=== PATIENT | female | born 1980 | race Caucasian/White ===

== ENCOUNTER 2022-06-21 01:01 | Emergency (ER) | payer SELFPAY ==
[2022-06-21 01:03] VITALS: BP 130/76; PULSE 91; RESP 18; TEMP 36.9; O2SAT 100; BMI 31.6
--- NOTE | 2022-06-21 02:34 | ED_ITS ---
HPI - General Adult General Chief complaint: General Medical Stated complaint: unable to move neck, pain goes to legs Time Seen by Provider: 06/21/22 01:42 History of Present Illness HPI narrative: Patient is a 41-year-old female with a history of having neck pain. Pain worse with turning. No fever no chills. Now is having migraine headaches as well. The migraine is diffuse. Positive photophobia similar to previous bouts. Patient is from home Related Data Previous Rx's Medication Instructions Recorded cyclobenzaprine 10 mg tablet 10 mg PO TID PRN pain #14 tabs 06/21/22 ibuprofen 400 mg tablet 400 mg PO Q6H PRN pain #20 tabs 06/21/22 nirmatrelvir 150 mg-ritonavir 100 See Rx Instructions PO .COMPLEX 06/21/22 mg tablets in a dose pack (EUA) #20 ea (Paxlovid) Allergies Allergy/AdvReac Type Severity Reaction Status Date / Time No Known Allergies Allergy Verified 06/21/22 01:09 Review of Systems Review of Systems: No coughing or congestion or respiratory symptoms Yes all other systems are reviewed and are negative [facility] Past Medical History Attestation statement: The following information was validated with the patient. Social History Social History Alcohol intake: never Smoked in Last 30 Days: Yes Use of substances other than those prescribed or required for medical reasons: No Advance Directives: No Advance Directives Information Provided: Yes Patient : No Physical Exam ED Vital Signs: Vital Signs - 24 hr 06/21/22 01:03 Temperature 98.4 F Pulse Rate 91 Respiratory Rate 18 Blood Pressure 130/76 Pulse Oximetry 100 Oxygen Delivery Method Room Air BMI result Body Mass Index 31.6 Appearance: Alert. Oriented X3. No acute distress. Eyes: Pupils equal, round and reactive to light. ENT: Pharynx normal. Neck: Normal inspection. Neck supple. No lymph nodes noted. No crepitus. No spinal tenderness. Positive paraspinal muscle tenderness bilaterally. Positive pain on turning her head. Less pain on moving her head up and down. CVS: Normal heart rate and rhythm. Pulses normal. Normal S1 and S2 Respiratory: No respiratory distress. Breath sounds normal. No Wheezing. No rales Abdomen: Soft and nontender. No rigidity. No distention. good BS x4 Skin: Skin warm and dry. Normal skin color. Normal skin turgor. Extremities: No lower extremity edema. Neurovascular intact to all extremities. No Lacerations. No Rash Neuro: Oriented X 3. No motor deficit. No sensory deficit. Moving all extermities. No slurred speech Medications Administered Discontinued Medications Generic Name Dose Route Start Last Admin Trade Name Gibson PRN Reason Stop Dose Admin Diphenhydramine HCl 25 mg 06/21/22 02:31 06/21/22 02:56 Diphenhydramine Hcl 50 Mg/Ml Vial IVPUSH 06/21/22 02:32 25 mg ONCE ONE Administration Ketorolac Tromethamine 30 mg 06/21/22 02:31 06/21/22 02:56 Ketorolac Tromethamine 30 Mg/Ml Vial IVPUSH 06/21/22 02:32 30 mg ONCE ONE Administration Lorazepam 0.5 mg 06/21/22 02:34 06/21/22 02:56 Lorazepam 2 Mg/Ml Vial IVPUSH 06/21/22 02:35 0.5 mg ONCE ONE Administration Metoclopramide HCl 10 mg 06/21/22 02:31 06/21/22 02:56 Metoclopramide Hcl 10 Mg/2 Ml Vial IVPUSH 06/21/22 02:32 10 mg ONCE ONE Administration Medical Decision Making Differential Diagnosis Question torticollis. Will give pain medication. History of migraine having similar symptoms. No evidence for meningitis. History not consistent. Will start patient on Reglan, Toradol, Benadryl, Ativan for her pains. She complained of also pain to her calf. She does not have any risk for pulmonary emboli. She is not on control. No long distance travel. We will go ahead and get a D-dimer. Patient LFTs and lipase ordered he felt she had lots of reflux she is in stable condition. An EKG was also ordered to rule out coronary issues. Flu COVID RSV was sent. Patient's COVID test came back positive. Question that is causing the headache and a slight upper respiratory symptoms. Symptoms been going on for about 3-4 days. Patient is vaccinated. She is low risk for COVID complications. After discussion with family. Will prescribe patient with PaxLovid. Patient's D- dimer is negative. Making DVT highly unlikely in the setting of low risk. Will give Motrin for the headache. Will give muscle relaxant for the spasm. Symptomaticly felt much improved after migraine treatment. Patient is sleeping. In no distress. Neurologically intact. Will discharge home. Lab Data 06/21/22 02:53 06/21/22 02:53 Labs: Lab Results 06/21/22 06/21/22 06/21/22 Range/Units 02:47 02:53 02:53 WBC 9.2 (4.8-10.8) X10*3/uL RBC 4.42 (4.20-5.50) X10*6/uL Hgb 12.6 (12.0-16.0) g/dl Hct 38.0 (37.0-47.0) % MCV 86.0 (80.0-98.0) fL MCH 28.5 (27.0-33.0) pg MCHC 33.2 (31.0-35.0) g/dl RDW 12.6 (11.0-16.0) % Plt Count 212 (160-400) X10*3/uL MPV 10.0 (9.4-12.3) fL Immature Gran % (Auto) 0.1 (0.0-0.4) % Neut % (Auto) 62.4 (45-73) % Lymph % (Auto) 27.9 (20-40) % Ellis % (Auto) 7.7 (2-11) % Eos % (Auto) 1.4 (0-4) % Baso % (Auto) 0.5 (0-2) % Lymph # (Auto) 2.6 (1.2-4.9) X10*3/uL Ellis # (Auto) 0.7 (0.1-1.2) X10*3/uL Eos # (Auto) 0.1 (0.0-0.4) X10*3/uL Baso # (Auto) 0.1 (0.0-0.2) X10*3/uL Abs Immat Gran (auto) 0.01 (0.00-0.03) X10*3/uL Absolute Neuts (auto) 5.7 (2.0-8.3) x10*3/uL Absolute Nucleated RBC 0.000 (0.0-0.012) X10*3/uL Nucleated RBC % (auto) 0.0 (0.0-0.2) /100WBC D-Dimer High Sensitivty 173 NG/ML Sodium (135-145) mmol/L Potassium (3.3-5.1) mmol/L Chloride (96-108) mmol/L Carbon Dioxide (22-29) mmol/L Anion Gap (12-20) BUN (9-16) mg/dL Creatinine (0.5-1.4) mg/dL Estim Creat Clear Calc Estimated GFR Random Glucose (60-115) mg/dL Calcium (8.4-10.2) mg/dL Total Bilirubin (0.0-1.0) mg/dL Direct Bilirubin (0.0-0.5) mg/dL AST (5-31) U/L ALT (0-31) U/L Alkaline Phosphatase (39-117) U/L Total Protein (6.5-8.0) g/dL Albumin (3.5-5.0) g/dL Lipase (8-78) U/L Beta HCG, Quant mIU/mL Urine Color Urine Appearance Urine pH (5.0-9.0) Ur Specific [place] (1.005-1.025) Urine Protein (Neg-Trace) mg/dL Urine Glucose (UA) (Negative) mg/dL Urine Ketones (Negative) mg/dL Urine Blood (Negative) Urine Nitrite (Negative) Ur Leukocyte Esterase (Negative) Influenza Type A (PCR) NEGATIVE (Negative) Influenza Type B (PCR) NEGATIVE (Negative) RSV RNA Qual (PCR) NEGATIVE (Negative) SARS-CoV-2 RNA (RT-PCR) POSITIVE A (Negative) 06/21/22 06/21/22 Range/Units 02:53 03:10 WBC (4.8-10.8) X10*3/uL RBC (4.20-5.50) X10*6/uL Hgb (12.0-16.0) g/dl Hct (37.0-47.0) % MCV (80.0-98.0) fL MCH (27.0-33.0) pg MCHC (31.0-35.0) g/dl RDW (11.0-16.0) % Plt Count (160-400) X10*3/uL MPV (9.4-12.3) fL Immature Gran % (Auto) (0.0-0.4) % Neut % (Auto) (45-73) % Lymph % (Auto) (20-40) % Ellis % (Auto) (2-11) % Eos % (Auto) (0-4) % Baso % (Auto) (0-2) % Lymph # (Auto) (1.2-4.9) X10*3/uL Ellis # (Auto) (0.1-1.2) X10*3/uL Eos # (Auto) (0.0-0.4) X10*3/uL Baso # (Auto) (0.0-0.2) X10*3/uL Abs Immat Gran (auto) (0.00-0.03) X10*3/uL Absolute Neuts (auto) (2.0-8.3) x10*3/uL Absolute Nucleated RBC (0.0-0.012) X10*3/uL Nucleated RBC % (auto) (0.0-0.2) /100WBC D-Dimer High Sensitivty NG/ML Sodium 140 (135-145) mmol/L Potassium 3.9 (3.3-5.1) mmol/L Chloride 108 (96-108) mmol/L Carbon Dioxide 22 (22-29) mmol/L Anion Gap 14 (12-20) BUN 17 H (9-16) mg/dL Creatinine 0.77 (0.5-1.4) mg/dL Estim Creat Clear Calc 102.5 Estimated GFR > 60 Random Glucose 95 (60-115) mg/dL Calcium 8.8 (8.4-10.2) mg/dL Total Bilirubin 0.2 (0.0-1.0) mg/dL Direct Bilirubin < 0.2 (0.0-0.5) mg/dL AST 14 (5-31) U/L ALT 12 (0-31) U/L Alkaline Phosphatase 67 (39-117) U/L Total Protein 6.9 (6.5-8.0) g/dL Albumin 4.1 (3.5-5.0) g/dL Lipase 23 (8-78) U/L Beta HCG, Quant < 2 mIU/mL Urine Color Yellow Urine Appearance Clear Urine pH 6.5 (5.0-9.0) Ur Specific [place] 1.020 (1.005-1.025) Urine Protein Negative (Neg-Trace) mg/dL Urine Glucose (UA) Negative (Negative) mg/dL Urine Ketones Negative (Negative) mg/dL Urine Blood Negative (Negative) Urine Nitrite Negative (Negative) Ur Leukocyte Esterase Negative (Negative) Influenza Type A (PCR) (Negative) Influenza Type B (PCR) (Negative) RSV RNA Qual (PCR) (Negative) SARS-CoV-2 RNA (RT-PCR) (Negative) Independent Historian Clinical information obtained from an independent historian. History obtained fr om or confirmed by: Spouse External Record Review External record reviewed: Inpatient record Prescription Management I considered prescription management with: Pain Medication and Other Muscle relaxant Discharge Plan Discharge Clinical Impression: Torticollis, COVID-19, Migraine Patient Disposition: Home, Self-Care Instructions: Migraine Headache (ED), Spasmodic Torticollis (ED), COVID-19 (Coronavirus Disease 2019) (ED) Prescriptions: New Paxlovid (EUA) 150-100 mg tablets,dose pack See Rx Instructions .ROUTE .COMPLEX Qty: 20 0RF Rx Instructions: take ONE 150 mg tablet of nirmatrelvir with ONE 100 mg tablet of ritonavir twice daily for 5 days cyclobenzaprine 10 mg tablet 10 mg PO TID PRN (Reason: pain) Qty: 14 0RF ibuprofen 400 mg tablet 400 mg PO Q6H PRN (Reason: pain) Qty: 20 0RF Referrals: Physician,None [Primary Care Provider] -
--- NOTE | 2022-06-21 02:36 | ECG_ITS ---
Test Reason : HEADACHE Blood Pressure : / mmHG Vent. Rate : 079 BPM Atrial Rate : 079 BPM P-R Int : 178 ms QRS Dur : 080 ms QT Int : 384 ms P-R-T Axes : 054 062 025 degrees QTc Int : 440 ms Normal sinus rhythm Normal ECG No previous ECGs available Referred By: Nanda Mathur Electronically Signed By:Florentin Florence
[2022-06-21] MEDS: LORazepam 2 MG/ML VIAL 0.5 MG IVPUSH (02:56)
[2022-06-21] MEDS: Ketorolac Tromethamine 30 MG/ML VIAL IVPUSH (02:56)
[2022-06-21] MEDS: diphenhydrAMINE HCL 50 MG/ML VIAL 25 MG IVPUSH (02:56)
[2022-06-21] MEDS: Metoclopramide HCl 10 MG/2 ML VIAL IVPUSH (02:56)
[2022-06-21 02:59] LABS: MANUAL DIFF FLAG NO
[2022-06-21 03:01] LABS: Basophils Absolute Auto 0.1 X10*3/uL (0.0-0.2); Basophils Percent Auto 0.5 % (0-2); Eosinophils Absolute Auto 0.1 X10*3/uL (0.0-0.4); Eosinophils Percent Auto 1.4 % (0-4); Hemoglobin 12.6 g/dl (12.0-16.0); Imm Gran Abs Auto 0.01 X10*3/uL (0.00-0.03); Imm Gran Pct Auto 0.1 % (0.0-0.4); Lymphocytes Absolute Auto 2.6 X10*3/uL (1.2-4.9); Lymphocytes Percent Auto 27.9 % (20-40); Mean Corpuscular HGB Conc 33.2 g/dl (31.0-35.0); Mean Corpuscular Hemoglobin 28.5 pg (27.0-33.0); Monocytes Absolute Auto 0.7 X10*3/uL (0.1-1.2); Monocytes Percent Auto 7.7 % (2-11); Neutrophils Absolute Auto 5.7 x10*3/uL (2.0-8.3); Neutrophils Percent Auto 62.4 % (45-73); Platelet Count 212 X10*3/uL (160-400); Red Blood Count 4.42 X10*6/uL (4.20-5.50); Red Cell Distribution Width 12.6 % (11.0-16.0); White Blood Count 9.2 X10*3/uL (4.8-10.8)
[2022-06-21 03:08] LABS: D Dimer High Sensitivity 173 NG/ML
[2022-06-21 03:21] LABS: Alanine Aminotransferase 12 U/L (0-31); Albumin Level 4.1 g/dL (3.5-5.0); Alkaline Phosphatase 67 U/L (39-117); Anion Gap 14 (12-20); Aspartate Amino Transferase 14 U/L (5-31); Bilirubin Direct < 0.2 mg/dL (0.0-0.5); Bilirubin Total 0.2 mg/dL (0.0-1.0); Blood Urea Nitrogen 17 mg/dL (9-16); Calcium 8.8 mg/dL (8.4-10.2); Carbon Dioxide 22 mmol/L (22-29); Chloride 108 mmol/L (96-108); Creatinine Clr Calc Pharmacy 102.5; Estimated Glomerular Filt Rate > 60; Glucose Random 95 mg/dL (60-115); Lipase 23 U/L (8-78); Potassium 3.9 mmol/L (3.3-5.1); Sodium 140 mmol/L (135-145); Total Protein 6.9 g/dL (6.5-8.0)
[2022-06-21 03:31] LABS: HCG Quantitative < 2 mIU/mL
[2022-06-21 03:31] LABS: Appearance Urine Clear; Color Urine Yellow; Glucose Urine UA Negative (Negative); Leukocyte Esterase Urine Negative (Negative); Nitrite Urine Negative (Negative); PH 6.5 (5.0-9.0); Urine Blood Negative (Negative); Urine Ketones Negative (Negative); Urine Protein Negative (Neg-Trace)
[2022-06-21 03:38] LABS: Influenza A PCR NEGATIVE (Negative); Influenza B PCR NEGATIVE (Negative); Resp Syncy Virus RNA Qual PCR NEGATIVE (Negative); SARS COV2 PCR INHOUSE POSITIVE (Negative)
== END 2022-06-21 04:45 | disposition home or self-care (01) ==
PROVIDERS: Emergency Provider Emergency Medicine Emergency Medical Services
DX: U07.1 COVID-19 (principal); M43.6 Torticollis; G43.909 Migraine, unspecified, not intractable, without status migrainosus; Z20.828 Contact with and (suspected) exposure to other viral communicable diseases
CPT/HCPCS: 0241U; 36415; 80048; 80076; 81003; 83690; 84702; 85025; 85379; 93005; 96374; 96375; 99284; J1200; J1885; J2060; J2765

== ENCOUNTER 2023-03-09 00:25 | Emergency (ER) | payer OTHER, SELFPAY ==
--- NOTE | 2023-03-09 | ECG_ITS ---
Test Reason : CHEST PAIN Blood Pressure : / mmHG Vent. Rate : 094 BPM Atrial Rate : 094 BPM P-R Int : 172 ms QRS Dur : 090 ms QT Int : 344 ms P-R-T Axes : 048 060 029 degrees QTc Int : 430 ms Normal sinus rhythm Normal ECG When compared with ECG of 21-JUN-2022 02:58, No significant change was found Referred By: Generic ED Physician Electronically Signed By:ROHIT GARCIA
[2023-03-09 00:37] VITALS: BP 141/62; PULSE 98; RESP 18; TEMP 37.2; O2SAT 99; BMI 32.6
[2023-03-09 01:38] LABS: Basophils Percent Auto 0.4 % (0-2); Eosinophils Absolute Auto 0.1 X10*3/uL (0.0-0.4); Hematocrit 35.7 % (37.0-47.0); Hemoglobin 12.2 g/dl (12.0-16.0); Imm Gran Abs Auto 0.01 X10*3/uL (0.00-0.03); Imm Gran Pct Auto 0.1 % (0.0-0.4); Lymphocytes Absolute Auto 1.9 X10*3/uL (1.2-4.9); Lymphocytes Percent Auto 24.6 % (20-40); MANUAL DIFF FLAG NO; Mean Corpuscular HGB Conc 34.2 g/dl (31.0-35.0); Mean Corpuscular Hemoglobin 29.2 pg (27.0-33.0); Mean Corpuscular Volume 85.4 fL (80.0-98.0); Mean Platelet Volume 9.9 fL (9.4-12.3); Monocytes Absolute Auto 0.7 X10*3/uL (0.1-1.2); Monocytes Percent Auto 9.3 % (2-11); Neutrophils Absolute Auto 5.1 x10*3/uL (2.0-8.3); Neutrophils Percent Auto 64.6 % (45-73); Platelet Count 218 X10*3/uL (160-400); Red Blood Count 4.18 X10*6/uL (4.20-5.50); Red Cell Distribution Width 12.6 % (11.0-16.0); White Blood Count 7.9 X10*3/uL (4.8-10.8)
[2023-03-09 01:52] LABS: Alanine Aminotransferase 14 U/L (0-31); Albumin Level 4.1 g/dL (3.5-5.0); Alkaline Phosphatase 64 U/L (39-117); Anion Gap 14 (12-20); Aspartate Amino Transferase 19 U/L (5-31); Bilirubin Direct < 0.2 mg/dL (0.0-0.5); Bilirubin Total 0.2 mg/dL (0.0-1.0); Blood Urea Nitrogen 16 mg/dL (9-16); Calcium 9.9 mg/dL (8.4-10.2); Carbon Dioxide 21 mmol/L (22-29); Chloride 110 mmol/L (96-108); Creatinine Clr Calc Pharmacy 96.8; Estimated Glomerular Filt Rate > 60; Glucose Random 98 mg/dL (60-115); Lipase 17 U/L (8-78); Potassium 3.8 mmol/L (3.3-5.1); Sodium 141 mmol/L (135-145); Total Protein 6.8 g/dL (6.5-8.0)
[2023-03-09 02:01] LABS: Troponin-I High Sensitivity < 2.7 ng/L (<3.5-17.0)
--- NOTE | 2023-03-09 04:18 | PC.NURSE ---
Pt expressing frustration with long wait to see MD despite labs/EKG being completed hours ago. Nursing encouraging patient to stay however pt requesting to leave.
== END 2023-03-09 04:27 | disposition left against medical advice (07) ==
PROVIDERS: Emergency Provider Emergency Medicine
DX: R07.89 Other chest pain (principal); F41.1 Generalized anxiety disorder; F43.0 Acute stress reaction; Z79.899 Other long term (current) drug therapy
CPT/HCPCS: 36415; 80048; 80076; 83690; 84484; 85025; 93005; 99283

== ENCOUNTER 2023-07-06 21:30 | Emergency (ER) | payer OTHER, SELFPAY ==
--- NOTE | 2023-07-06 21:31 | ECG_ITS ---
Test Reason : tachicardia Blood Pressure : / mmHG Vent. Rate : 096 BPM Atrial Rate : 096 BPM P-R Int : 164 ms QRS Dur : 090 ms QT Int : 334 ms P-R-T Axes : 041 041 016 degrees QTc Int : 421 ms Normal sinus rhythm Possible Anterior infarct , age undetermined Abnormal ECG When compared with ECG of 09-MAR-2023 00:31, No significant change was found Referred By: Generic ED Physician Electronically Signed By:IGLESIA ROJAS MD
[2023-07-06 21:33] VITALS: BP 116/66; PULSE 102; O2SAT 96
[2023-07-06 21:53] VITALS: BP 108/65; PULSE 98; RESP 16; TEMP 37.4; O2SAT 96; BMI 31.8
[2023-07-06 21:57] LABS: Hematocrit 36.9 % (37.0-47.0); Hemoglobin 12.5 g/dl (12.0-16.0); Mean Corpuscular HGB Conc 33.9 g/dl (31.0-35.0); Mean Corpuscular Hemoglobin 28.2 pg (27.0-33.0); Mean Corpuscular Volume 83.1 fL (80.0-98.0); Mean Platelet Volume 9.8 fL (9.4-12.3); Platelet Count 228 X10*3/uL (160-400); Red Blood Count 4.44 X10*6/uL (4.20-5.50); Red Cell Distribution Width 12.9 % (11.0-16.0); White Blood Count 8.1 X10*3/uL (4.8-10.8)
[2023-07-06 22:11] LABS: Alanine Aminotransferase 13 U/L (0-31); Alkaline Phosphatase 61 U/L (39-117); Anion Gap 11 (12-20); Aspartate Amino Transferase 14 U/L (5-31); Bilirubin Total 0.2 mg/dL (0.0-1.0); Blood Urea Nitrogen 9 mg/dL (9-16); Calcium 9.2 mg/dL (8.4-10.2); Carbon Dioxide 25 mmol/L (22-29); Chloride 107 mmol/L (96-108); Creatinine Clr Calc Pharmacy 92.1; Estimated Glomerular Filt Rate > 60; Glucose Random 122 mg/dL (60-115); Potassium 3.5 mmol/L (3.3-5.1); Sodium 139 mmol/L (135-145); Total Protein 6.8 g/dL (6.5-8.0)
[2023-07-06 22:20] LABS: Troponin-I High Sensitivity < 2.7 ng/L (<3.5-17.0)
--- NOTE | 2023-07-07 00:11 | ED_ITS ---
HPI - Arrhythmia/Palpitations General Chief Complaint: Arrhythmia/Palpitations Stated Complaint: tachy Time Seen by Provider: 07/06/23 23:42 Source: patient Mode of arrival: EMS Limitations: no limitations History of Present Illness HPI narrative: Patient is a 42-year-old female who presents emergency department for evaluation of chest pain and tachycardia. She states that she was smoking marijuana, when she suddenly felt a pain to her chest and shortness of breath, per her significant other she became very pale, they have a pulse oximeter at home, reportedly her heart rate was 220, and then drop down to the 140s. She said that this lasted approximately 45 minutes which prompted her to call EMS. Per EMS report she was noted to be tachycardic in the 150s, she was advised to perform a Valsalva maneuver and then this dropped to 100 and she endorsed alleviation of her chest pain symptoms. She does report that she has had similar episodes of tachycardia typically 130/140s, but usually resolves after a few seconds and has never experienced pain associated with this. Reports that her mother has a history of SVT. At this time she denies any symptoms Related Data Previous Rx's Medication Instructions Recorded cyclobenzaprine 10 mg tablet 10 mg PO TID PRN pain #14 tabs 06/21/22 ibuprofen 400 mg tablet 400 mg PO Q6H PRN pain #20 tabs 06/21/22 nirmatrelvir 150 mg-ritonavir 100 See Rx Instructions PO .COMPLEX 06/21/22 mg tablets in a dose pack #20 ea (Paxlovid) metoprolol tartrate 25 mg tablet 12.5 mg (1/2 x 25 mg) PO DAILY #30 07/07/23 tabs Allergies Allergy/AdvReac Type Severity Reaction Status Date / Time No Known Allergies Allergy Verified 07/06/23 21:53 Review of Systems 2 Review of Systems: Yes all other systems are reviewed and are negative PMFSH Past Medical History Attestation statement: The following information was validated with the patient. Source: old records reviewed Social History Social History Alcohol intake: current Alcohol intake frequency: holidays/special occasions only Smoked in Last 30 Days: No Use of substances other than those prescribed or required for medical reasons: Yes Substance Use Type: Marijuana Advance Directives: No Advance Directives Information Provided: No Patient : No Physical Exam 2 Vital Signs: Vital Signs: Last Vital Signs Temp 99.3 F 07/06/23 21:53 Pulse 82 07/07/23 00:33 Resp 20 07/07/23 00:33 BP 109/69 07/07/23 00:33 Pulse Ox 97 07/07/23 00:33 O2 Del Method Room Air 07/07/23 00:33 BMI result Body Mass Index 31.8 Appearance: Alert.?Oriented to person, place and time. No acute distress.?Normal affect. Eyes: Pupils equal, round and reactive to light.? ENT: Pharynx normal.?? Neck: Normal inspection.? Neck supple.?? CVS: Heart sounds normal. Normal heart rate and rhythm.? Pulses normal.?? Respiratory: No respiratory distress.? Lung sounds clear to auscultation bilaterally?? Abdomen: Soft and non-tender. Normoactive bowel sounds. No pulsatile mass.?? Skin: Skin warm and dry.? Normal skin color.? Normal skin turgor.?? Extremities: No lower extremity edema.? No calf ttp? Neuro: Moves all extremities spontaneously. Sensation intact bilaterally. CN II- XII intact. No focal neuro deficits. Ambulates with normal steady gait. Medications Administered Discontinued Medications Generic Name Dose Route Start Last Admin Trade Name Freq PRN Reason Stop Dose Admin Metoprolol Tartrate 12.5 mg 07/07/23 00:22 07/07/23 00:35 Metoprolol Tartrate 12.5 Mg Halftab PO 07/07/23 00:23 12.5 mg ONCE ONE Administration Protocol Medical Decision Making Medical Decision Making MDM Narrative: Patient is a 42-year-old female who presents emergency department for evaluation of chest pain and tachycardia as per HPI. Overall she appears well, nontoxic, afebrile without tachypnea or hypoxia. Reviewed initial EKG which reveals a normal sinus rhythm, ventricular rate of 96, normal PA interval, QTC 421, no ST elevation, no ST depression, she is asymptomatic at this time. Labs are without leukocytosis or anemia, no electrolyte abnormality, or GERARD. High sensitive troponins below detectable limits, I do not suspect ACS as etiology for symptoms. History is concerning for SVT/tachyarrhythmia, no evidence of such on cardiac monitoring while in the emergency department. Discussed this case with ED Attending Dr. Wilson, who recommends starting Metoprolol 12.5mg daily and outpatient follow-up with cardiology. Differential Diagnosis Differential Diagnoses: The differential diagnosis associated with the presentation includes (Arrhythmia, SVT, anxiety, ACS) Admission/Observation Consideration of admission/observation: Escalation of care including admission/observation considered (See narrative above) Lab Data MDM Lab Attestation statement: I reviewed the patient's lab results. (See narrative above) 07/06/23 21:49 07/06/23 21:49 Labs: Lab Results 07/06/23 Range/Units 21:49 WBC 8.1 (4.8-10.8) X10*3/uL RBC 4.44 (4.20-5.50) X10*6/uL Hgb 12.5 (12.0-16.0) g/dl Hct 36.9 L (37.0-47.0) % MCV 83.1 (80.0-98.0) fL MCH 28.2 (27.0-33.0) pg MCHC 33.9 (31.0-35.0) g/dl RDW 12.9 (11.0-16.0) % Plt Count 228 (160-400) X10*3/uL MPV 9.8 (9.4-12.3) fL Absolute Nucleated RBC 0.000 (0.0-0.012) X10*3/uL Nucleated RBC % (auto) 0.0 (0.0-0.2) /100WBC Sodium 139 (135-145) mmol/L Potassium 3.5 (3.3-5.1) mmol/L Chloride 107 (96-108) mmol/L Carbon Dioxide 25 (22-29) mmol/L Anion Gap 11 L (12-20) BUN 9 (9-16) mg/dL Creatinine 0.85 (0.5-1.4) mg/dL Estim Creat Clear Calc 92.1 Estimated GFR > 60 Random Glucose 122 H (60-115) mg/dL Calcium 9.2 D (8.4-10.2) mg/dL Total Bilirubin 0.2 (0.0-1.0) mg/dL AST 14 (5-31) U/L ALT 13 (0-31) U/L Alkaline Phosphatase 61 (39-117) U/L Troponin I High Sens < 2.7 (<3.5-17.0) ng/L Total Protein 6.8 (6.5-8.0) g/dL Albumin 4.0 (3.5-5.0) g/dL Independent Interpretation I performed an independent interpretation of an: EKG (See narrative above) Independent Historian Clinical information obtained from an independent historian. History obtained from or confirmed by: EMS Prescription Management I considered prescription management with: Other (Metoprolol) Discharge Plan Discharge Clinical Impression: Tachycardia, Chest pain Patient Disposition: Home, Self-Care Instructions: Chest Pain (ED), Valsalva Maneuver (ED) Additional Instructions: As discussed, take metoprolol once daily in the evening starting tomorrow as received the 1st dose in the emergency department. Monitor your blood pressure and heart rate twice daily keep a record of this. If you begin developing similar symptoms to today, recent heart sensation, chest pain, lightheadedness, and elevated heart rate you may take a 2nd dose of metoprolol and present to the emergency department for evaluation. Avoid caffeine as this may worsen your symptoms. Contact cardiology office to arrange for a follow-up visit. Return back to emergency department any new or worsening symptoms or concerns. Prescriptions: New metoprolol tartrate 25 mg tablet 12.5 mg PO DAILY Qty: 30 0RF No Action Paxlovid 150-100 mg tablets,dose pack See Rx Instructions .ROUTE .COMPLEX Qty: 20 0RF Rx Instructions: take ONE 150 mg tablet of nirmatrelvir with ONE 100 mg tablet of ritonavir twice daily for 5 days cyclobenzaprine 10 mg tablet 10 mg PO TID PRN (Reason: pain) Qty: 14 0RF ibuprofen 400 mg tablet 400 mg PO Q6H PRN (Reason: pain) Qty: 20 0RF Referrals: Chaitanya Enrique MD [Physician] - Interventions: ED Discharge Assessment Last Done: 07/07/23 00:40 Discharge Date/Time: 07/07/23 00:41
[2023-07-07 00:33] VITALS: BP 109/69; PULSE 82; RESP 20; O2SAT 97
[2023-07-07] MEDS: Metoprolol Tartrate 12.5 MG HALFTAB PO (00:35)
== END 2023-07-07 00:41 | disposition home or self-care (01) ==
PROVIDERS: Emergency Provider Internal Medicine
DX: R00.0 Tachycardia, unspecified (principal); R07.9 Chest pain, unspecified
CPT/HCPCS: 36415; 80053; 84484; 85027; 93005; 99283; 99284

== ENCOUNTER → 2023-07-06 21:31 | Outpatient (BNV) | payer OTHER, SELFPAY | PROVIDERS: Emergency Provider Internal Medicine; Visit Provider Internal Medicine Cardiovascular Disease | DX: R94.31 Abnormal electrocardiogram [ECG] [EKG] (principal) | CPT/HCPCS: 93010 ==

== ENCOUNTER 2023-08-03 14:41 | Outpatient (AMB) | payer OTHER, SELFPAY ==
[2023-08-03 14:48] VITALS: BP 104/72; PULSE 96; BMI 34.3
--- NOTE | 2023-08-03 14:48 | MHC.OFFVIS ---
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 Sat monitor was used at home and pulse rate recorded as high as 220. EMS was called and she was found to be tachycardic with heart rate 150. She did vagal maneuvers and heart rate came down to 100. ER evaluation showed significant findings. She was given low-dose metoprolol tartrate and referred to Cardiology in follow-up. Today she reports that she has had 2 more episodes since her ER visit where she noted her heart rate was elevated. Her symptoms starts 1st with a sharp pain in the left chest region then she will notice her heart is beating fast. She uses the sat monitor frequently to assess her heart rate. It has been as high as 130 recently. If she lays down and relaxes the symptom does improved. She also describes another type of chest discomfort which has occurred on occasion. This symptom is mid sternal and spreads across precordium. No other associated symptoms. She believes this one might be GI related. No shortness of breath, presyncope, syncope, falls. No PND, orthopnea or edema. Tolerates normal ADLs. Currently has been mostly sedentary. History of smoking periodically over the years. Currently not smoking any cigarettes. She was smoking marijuana and using gummies periodically but now believes these may be adding to her heart palpitations. Rare alcohol use. Her mother has history of SVT. No other known family history of heart disease. Patient herself has never had any cardiac diagnosis. She denies any history of hypertension, hyperlipidemia or diabetes. [facility] Family History (Updated 08/03/23 @ 15:59 by GABRIEL Perez) Mother SVT (supraventricular tachycardia) Social History Alcohol intake: current Alcohol intake frequency: holidays/special occasions only Substance Use Type: Marijuana Review of Systems Const All systems reviewed & are unremarkable except as noted in HPI and below ENT Denies dizziness Card Reports chest pain, Reports chest pain at rest, Denies chest pain with activity, Reports rapid heart rate, Denies pedal edema, Denies edema, Denies leg edema, Denies lightheadedness, Reports palpitations, Denies dyspnea, Denies dyspnea on exertion and Denies orthopnea Resp Denies cough, Denies dyspnea and Denies dyspnea on exertion GI Denies hematochezia and Denies change in stool character Musc Denies abnormal gait, Denies limited range of motion, Denies muscle cramps, Denies muscle weakness, Denies numbness, Denies radiating pain into limb, Denies stiffness and Denies tingling Neuro Denies abnormal gait, Denies dizziness, Denies numbness and Denies tingling Endo Reports palpitations Physical Exam Vital Signs: Last Vital Signs Pulse 96 08/03/23 14:48 BP 104/72 08/03/23 14:48 BMI result Body Mass Index 34.3 Const General: cooperative, healthy appearing, comfortable and no acute distress Orientation/consciousness: patient oriented x3 Neck Neck: Yes normal visual inspection and Yes no JVD Carotids: normal carotid upstroke Resp Effort & Inspection: normal respiratory effort Auscultation: clear to auscultation bilaterally, no crackles and no rhonchi Cardio Jugular venous distension: no JVD Rate: regular rate Rhythm: regular rhythm Heart sounds: S1 normal heart sound present, S2 normal heart sound present, no murmurs and no rubs Neuro General: patient oriented x3 Extrem General: Yes normal to inspection, No no pedal edema and No calf tenderness Psych Appearance: grossly normal Mental Status: mental status grossly normal Speech and movement: Normal speech and movement present Assessment & Plan Assessment & Plan (1) Precordial chest pain: Code(s): R07.2 - Precordial pain Plan: Chest discomfort as described above. One is a sharp pain to the left chest region associated with rapid heart palpitations. Another is a mid sternal discomfort which occurs randomly that she believes is more GI related. No symptoms brought on by physical activity. EKG done 07/06/2023 showing sinus rhythm with possible anterior infarct, age undetermined, rate 96, normal ID, QTC and QRS intervals. Cardiac risk factor of prior smoking. Will order a exercise stress echo to evaluate for ischemia. Imaging study is ordered due to abnormal finding on EKG. Will order an echocardiogram to evaluate for any structural heart disease. Signs and symptoms of true angina reviewed with her. Cardiology follow-up when test results are available. Emergency care if ever needed for recurrent symptoms. (2) Palpitation: Code(s): R00.2 - Palpitations Plan: Report of rapid heart palpitations. Using a sat monitor she was able to record her heart rate as high as 220. ER notes state EMS had her heart rate at 150 and following vagal maneuvers heart rate was down to 100. She states years ago there was concerns that she may have SVT however she never followed through with evaluation and testing. She did not have problems for many years and now she is having recurrent issues. She was smoking marijuana the evening of the last ER visit. She also recently had COVID which she thinks may contribute to her current symptoms. Echocardiogram as above to assess EF and for structural heart disease. Will check a Holter monitor to evaluate for arrhythmia. She has metoprolol on hand. Will hold off on daily use. She can take 25 mg of metoprolol if she notices concerning heart palpitations. Reviewed different vagal maneuvers with her. Emergency care if needed for ongoing or symptomatic heart palpitations. (3) Tachycardia: Code(s): R00.0 - Tachycardia, unspecified Plan: As above (4) Abnormal EKG: Code(s): R94.31 - Abnormal electrocardiogram [ECG] [EKG] Plan: As above Plan Time spent on chart review, documentation, interview and assessment Orders: Orders CA echo transthoracic complete Today R00.2 - Palpitations, R07.2 - Precordial pain, R94.31 - Abnormal electrocardiogram [ECG] [EKG] CA echo stress exercise Today R07.2 - Precordial pain, R94.31 - Abnormal electrocardiogram [ECG] [EKG] ECG 3 day holter monitor Today R00.2 - Palpitations, R07.2 - Precordial pain, R94.31 - Abnormal electrocardiogram [ECG] [EKG] Coding Level of Care Code New Pt Level 4 (80015) Diagnoses Precordial chest pain R07.2 Palpitation R00.2 Tachycardia R00.0 Abnormal EKG R94.31 Time Spent (min) 28
== END 2023-08-03 15:27 | disposition home or self-care (01) ==
PROVIDERS: Visit Provider Nurse Practitioner Family
DX: R07.2 Precordial pain (principal); R00.2 Palpitations; R00.0 Tachycardia, unspecified; R94.31 Abnormal electrocardiogram [ECG] [EKG]
CPT/HCPCS: 99204

== ENCOUNTER → 2023-08-03 14:41 | Outpatient (BNVA) | payer OTHER, SELFPAY | PROVIDERS: Visit Provider Nurse Practitioner Family ==

== ENCOUNTER → 2023-08-25 14:05 | Outpatient (REF) | payer OTHER, SELFPAY ==
--- NOTE | 2023-08-25 14:09 | CA_ITS ---
Transthoracic Echocardiogram Patient (Last, First, Middle): Dayan Ramon Beth Gender: Female Date of : 1980 Age: 42 Procedure Date: 08/25/2023 Procedure Type: Transthoracic Echocardiogram Location: OP Height: 162.56 cm Weight: 89.81 kg BSA: 1.95 m2 Heart Rate: bpm BP: 110 / 64 mmHg Pest Control Supervisor: LAURA Referring MD: Theresa Gold SALES TEAM MEMBERJannet Symptoms: R07.2 - Precordial pain Study Quality: Adequate w contrast ECG Rhythm: Sinus Conclusions: - The left ventricular systolic function is low normal. The calculated ejection fraction is 54% by biplane method. - No obvious valvular pathology seen on this study. Findings Procedure Information Contrast agent, definity, is being given per protocol without apparent complications. Left Ventricle Normal left ventricular cavity size. There is normal left ventricular wall thickness. The left ventricular systolic function is low normal. The calculated ejection fraction is 54% by biplane method. There is no evidence of regional wall motion abnormalities. Diastolic function is normal for age. Right Ventricle Normal right ventricular cavity size and systolic function. Atria Both atria are normal in size. Aortic Valve There is a normal trileaflet aortic valve. There is no aortic valve stenosis. There is no aortic valve regurgitation. Mitral Valve The mitral valve appears normal. There is no mitral valve regurgitation. There is no mitral valve stenosis. Pulmonic Valve The pulmonic valve is likely normal. Tricuspid Valve There is no tricuspid valve regurgitation. Tricuspid regurgitation envelope is inadequate for calculation of right ventricular systolic pressure. Great Vessels The asc aorta and aortic arch are normal in size. Venous The inferior vena cava was not well visualized. Pericardium/Pleural There is no evidence of pericardial effusion. Prior Study Comparison No prior study available for comparison. Recommendations, Care & Conclusions No obvious valvular pathology seen on this study. Measurements 2D Linear Measurements IVSd: 0.98 0.6-0.9/0.6-1.0 cm LVIDd: 4.43 3.9-5.3/4.2-5.9 cm LVIDd Index: 2.27 2.4-3.2/2.2-3.1 cm/m2 LVIDs: 3.06 2.0-3.6 cm LVPWd: 0.96 0.7-1.1 cm LA Diam: 3.00 2.7-3.8/3.0-4.0 cm LAIDs Index: 1.54 1.5-2.3 cm/m2 LV Mass: 179.16 67-162/88-224 g LV Mass Index: 91.88 43-95/49-115 g/m2 LVOT Diam: 2.10 3.0+(-)1.3 cm 2D Systolic Function EF 4C: 50.00 >55% EF 2C: 59.10 >55% EF BiP: 53.90 >55% Mitral Valve MV Pk E: 0.56 MV PK A: 0.51 MV Decel Time: 203.00 E/A: 1.10 E'Lateral: 12.60 E'Medial: 11.30 E/E' Med: 5.00 E/E' Lat: 4.50 PHT: 59.00 MVA PHT: 3.73 Decel Burke: 2.77 Aortic Valve AoV Pk Javi: 1.18 AoV Mn Javi: 0.90 AoV VTI: 0.25 AoV Pk Grad: 6.00 Aov Mn Grad: 4.00 LORENA Cont.VTI: 2.70 LVOT LVOT Pk Javi: 0.99 LVOT Mn Javi: 0.64 LVOT VTI: 0.20 LVOT Pk Grad: 4.00 LVOT Mn Grad: 2.00 LVOT Diam: 2.10 LVOT Area: 3.46 Diastolic Function MV Pk E: 0.56 MV Pk A: 0.51 E/A: 1.10 E'Medial: 11.30 E/E' Med: 5.00 E' Laterial: 12.60 E/E' Lat: 4.50 Right Ventricle TAPSE (mm): 22.30 TVS' Javi: 13.90 Great Vessels Aorta Sinus of Valsalva: 3.15 2.0-3.[address] Ridge: 2.35 1.7-3.4 cm Ao Asc: 2.90 2.1-3.4 cm Ao Arch: 2.60 Updated in Other Vendor System with Status of Final Ivan Maurer MD electronically signed on 08/26/2023 11:53:10 AM with status of Final
--- NOTE | 2023-08-25 14:09 | HM_ITS ---
Conclusion: 1. Patient was monitored for total period of 2 days and 23 hours 2. Baseline was normal sinus rhythm with average heart of 89 beats per minute 3. No significant arrhythmias or pauses noted 4. No patient reported events MTDD
== END ==
LOC: HO.CARD 14:05
PROVIDERS: PCP Physician Assistant; Visit Provider Nurse Practitioner Family
DX: R07.2 Precordial pain (principal); R00.2 Palpitations; R94.31 Abnormal electrocardiogram [ECG] [EKG]
CPT/HCPCS: 93242; 93306; Q9957

== ENCOUNTER → 2023-08-25 14:09 | Outpatient (BNV) | payer OTHER, SELFPAY | PROVIDERS: PCP Physician Assistant; Visit Provider Internal Medicine | DX: R07.2 Precordial pain (principal) | CPT/HCPCS: 93244; 93306 ==

== ENCOUNTER → 2023-09-03 10:59 | Outpatient (REF) | payer OTHER, SELFPAY ==
--- NOTE | 2023-09-03 11:03 | CA_ITS ---
Acquisition Time: 2023-09-03 11:04:23 Total Exercise Time: 00:08:10 Test Indications: ABN EKG Medications: SEE H Protocol: BABAR Max HR: 176 BPM 97% of Pred: 180 BPM Max BP: 142/058 mmHG Max Work Load: 10.4 METS Exercise stress test with exercise 8 min 10 sec of Babar protocol, achieving 99% MPHR, without anginal symptoms, without arrythmia, with normotensive response to exercise, without EKG changes meeting criteria for ischemia. Echo images obtained by tech at rest and immediately post peak exercise. Definity contrast used. Test reviewed with Dr Florence. Referred By: Theresa Gold Overread By: THERESA GOLD
== END ==
LOC: HO.CARD 10:59
PROVIDERS: PCP Physician Assistant; Visit Provider Nurse Practitioner Family
DX: R07.2 Precordial pain (principal); R94.31 Abnormal electrocardiogram [ECG] [EKG]
CPT/HCPCS: 93350; Q9957

== ENCOUNTER → 2023-09-03 11:03 | Outpatient (BNV) | payer OTHER, SELFPAY | PROVIDERS: PCP Physician Assistant; Visit Provider Nurse Practitioner Family | DX: R94.31 Abnormal electrocardiogram [ECG] [EKG] (principal) | CPT/HCPCS: 93016; 93018; 93350; 93352 ==

== ENCOUNTER 2023-09-07 08:36 | Outpatient (AMB) | payer OTHER, SELFPAY ==
[2023-09-07 08:37] VITALS: BP 108/70; PULSE 97; O2SAT 98; BMI 35.6
--- NOTE | 2023-09-07 08:37 | MHC.OFFVIS ---
Intake Vital Signs 09/07/23 08:37 Height 5 ft 4 in Weight 207 lb 6 oz BMI 35.6 BP 108/70 Blood Pressure Location Rt brachial Position Sitting Pulse 97 Pulse Source Pulse Oximeter Pulse Oximetry (%) 98 Oxygen Delivery Method Room Air Intake Visit Reasons: ENP-Chronic Migraines-LVM Intake Note: Patient presents for migraines. patient gets headaches or migraines everyday. Allergies No Known Allergies Allergy (Verified 09/15/23 11:22) Medication List - Last Reconciled 09/07/23 by MARY Grover estradiol-progesterone 0.5-100 mg 1 cap PO DAILY ibuprofen 400 mg PO Q6H PRN sumatriptan succinate (Imitrex) take 1 tab at onset of headache; if no relief, may repeat 1 tab after at least 2 hrs; max = 2 tabs/24 hrs PO HPI HPI Comments History of Present Illness Details Left-handed 42-yr-old female presents for new pt evaluation of headache disorder. She has had migraine since age 16, maybe a little younger. She has seen neurology in the past, however never found something that was very helpful and tolerated. She comes to re-establish care with neurology, as she her headaches have been changing and would like help to address these. She wonders if this is r/t having Covid-19 at least 6 times. PMH is significant for: PCOS, childhood asthma, GERD. Pt also endorses: recent elevated blood sugars, head injury- occipital fracture at age 11, anxiety/depression/bipolar, sleep problems. Pertinent denials include: HTN, clotting disorders, seizure d/o's, thyroid d/o. Headache questionnaire: Age/time of onset? 16 Preceding causes? Likely menses Previous work-up? Has had brain MRI- last MRI was done to assess for pulsatile tinnitus, hears music. Typical headache characteristics: Prodrome symptoms? none Aura? Previously never had visual aura. More recently the lights were flickering x's 3 days- this was f/b developing an eye stye. Pain intensity? Severe Location, quality, characteristics? Varies- throbbing, pressure, stabbing. Location varies- left is more temporal. Right is more parietal and occipital. Mid-frontal. Neck. Associated symptoms? Photophobia, phonophobia, osmophobia, allodynia, nausea, difficulty concentrating, word finding difficulties, tiredness, activity intolerance. Focal weakness, Parethesias, Autonomic s/s? Left eyelid droops , left facial stiffness/heavy/altered sensation- feels droopy but her boyfriend does not see it, tariq eye tearing and prolonged yawning. Postdrome? Triggers? Exercises, lack of sleep, altitude changes, weather changes, wind. Any positional, valsalva, exertional, sexual activity triggers? Bending over or cervical flexion can trigger a headache. Menstrual triggers? Menses is regular- does trigger migraine. OCP is helping to regulate her cycle. Time of day? No specific time of day Duration and Frequency? Every day has a headache, and 3-5 days per week will have a migraine. A migraine attack can last 3 days. How does headache impact your life? Has had to leave her previous job. Makes it difficult to do her daily activities. Lifestyle considerations: Usual bedtime between 830-11 p.m. with usual wake-up time 05:00, usually able to fall asleep, has difficulty maintaining sleep. May snore. Has fatigue and daytime tiredness. Denies gasping. Takes 2-3 cups of caffeine per day. Denies alcohol, tobacco, other recreational substance use. No usual exercise. Current acute medication use/interventions: Sumatriptan 100 mg as needed Current preventative medication use: None Non-pharmacological interventions: Rest Family history of migraine or other headache disorder? Aunt PFSH Surgical History H/O foot surgery H/O gastric sleeve Hx laparoscopic cholecystectomy Family History Mother SVT (supraventricular tachycardia) Social History Alcohol intake: current Alcohol intake frequency: holidays/special occasions only Patient Tobacco Use Status: Never used Tobacco Substance Use Type: Marijuana Physical Exam Vital Signs: Last Vital Signs Pulse 97 09/07/23 08:37 BP 108/70 09/07/23 08:37 Pulse Ox 98 09/07/23 08:37 Oxygen Delivery Method Room Air 09/07/23 08:37 BMI result Body Mass Index 35.6 Const Orientation/consciousness: patient oriented x3 HEENT Other: No palpable scalp tenderness. Head: Yes normocephalic Resp Effort & Inspection: normal respiratory effort and able to speak in complete sentences Neuro General: patient oriented x3 Cranial nerves: Yes CN's II-XII intact bilaterally Cognition (Neuro): normal cognition Gait exam (Neuro): Normal gait present Motor exam (neuro): 5/5 motor strength present throughout Deep tendon reflexes (DTR's): Right triceps reflex intensity grade: 2+, Left triceps reflex intensity grade: 2+, Rt Biceps (C5, C6): 2+, Left biceps reflex intensity grade: 2+, Right brachioradialis reflex intensity grade: 2+, Left brachioradialis reflex intensity grade: 2+, Right patellar reflex intensity grade: 2+ and Left patellar reflex intensity grade: 2+ Coordination: pxkyam-dd-rhet test normal, tandem gait normal and Romberg test negative Pupils: Normal pupillary reactivity/response: bilateral Psych Appearance: grossly normal Mental Status: mental status grossly normal Speech and movement: Normal speech and movement present Affect: normal affect Attitude: cooperative Thought process: Normal thought process present Assessment & Plan Assessment & Plan (1) Worsening headaches: Code(s): R51.9 - Headache, unspecified (2) Migraine without aura: Code(s): G43.009 - Migraine without aura, not intractable, without status migrainosus (3) Pulsatile tinnitus, bilateral: Code(s): H93.A3 - Pulsatile tinnitus, bilateral (4) Snoring: Code(s): R06.83 - Snoring (5) Fatigue: Code(s): R53.83 - Other fatigue (6) Sleep difficulties: Code(s): G47.9 - Sleep disorder, unspecified (7) Positional headache: Code(s): R51.0 - Headache with orthostatic component, not elsewhere classified Plan Pt advised to undergo: HST to assess for sleep apnea Brain MRI with and without contrast to assess for worsening headaches, with positional component and pulsatile tinnitus. Head and neck CTA to assess for worsening headaches with positional component and pulsatile tinnitus. C-spine XR w/ flex/ext For overall headache management: Discussed importance of good self-care, including but not limited to maintaining a healthy diet, adequate fluid intake, adequate sleep, and engaging in regular physical activity. For headache triggers: Track headaches, especially after any treatment regimen changes. Migraine [employer] is one of many headache tracking apps. Light sensitivity tips: Patient may try blue light filtering glasses, green glasses, green light therapy.. Avoid wearing sunglasses inside. For acute headache treatment: Discussed importance of taking acute medications at the first sign of headache, however stressed importance of avoiding acute medication overuse (especially with combined headache medications). Trial Ubrogepant (Ubrelvy) 100mg tab, 1/2 - 1 tab (50-100mg) at onset of headache, may repeat in 2 hours. Max of 2 tabs (200mg) per 24 hours. May adjunct with OTC Tylenol 650mg q 4 hours, Ibuprofen 600mg q 6 hours, or Naproxen 440mg q 12 hrs prn.. Previous acute migraine medication trials: Sumatriptan 50-100mg- helps sometimes, causes sleepiness. Eletriptan- helpful but caused profound sleepiness. Acute migraine medication contraindications: None at this time For headache prevention medication: Discussed that preventative medications should be taken routinely as prescribed for best effect, it may take several weeks for full effect to take effect. Start Riboflavin 400mg qam Start Magnesium 400mg qhs Start Ajovy 225 mg subcu q.month. Reviewed potential adverse effects of Ajovy, including but not limited to injection site reactions. Previous migraine prevention medication trials: Topiramate- caused hallucinations, cognitive difficulties, taste changes, Nortriptyline- ? effect, Gabapentin- caused hypotension, Propranolol- ineffetive and caused hypotension, Lamotrigene- was used for mood, did help headaches some, Depakote- ineffective. Migraine prevention medication contraindications: None at this time Pt to follow-up in 2-3 months or sooner prn. Orders: Orders RT home sleep study 09/07/23 R06.83 - Snoring, R53.83 - Other fatigue, G47.9 - Sleep disorder, unspecified MR head/brain wo/w con 09/07/23 H93.A3 - Pulsatile tinnitus, bilateral, R51.9 - Headache, unspecified, R51.0 - Headache with orthostatic component, not elsewhere classified CT angio head neck 09/07/23 R51.0 - Headache with orthostatic component, not elsewhere classified, R51.9 - Headache, unspecified, R06.83 - Snoring XR cervical spine w flex/ext 04/01/24 R51.0 - Headache with orthostatic component, not elsewhere classified, M54.2 - Cervicalgia Medications: New magnesium oxide may hold for loose stools 400 mg PO BEDTIME 30 tabs 6RF 30 days riboflavin (vitamin B2) 400 mg PO DAILY 30 tabs 6RF 30 days ubrogepant (Ubrelvy) take at onset of migraine, may repeat in 2hrs (may take w/ Ibuprofen) 50 - 100 mg (0.5 - 1 x 100 mg) PO ONCE PRN 16 tabs 3RF migraine headache 30 days fremanezumab-vfrm (Ajovy) administer 225mg sc q month 225 mg (1.5 mL) subcut ONCE 1.5 mL 6RF 30 days Coding Level of Care Code New Pt Level 4 (99971) Diagnoses Worsening headaches R51.9 Migraine without aura G43.009 Pulsatile tinnitus, bilateral H93.A3 Snoring R06.83 Fatigue R53.83 Sleep difficulties G47.9 Positional headache R51.0
== END 2023-09-07 10:07 | disposition home or self-care (01) ==
PROVIDERS: Visit Provider Nurse Practitioner Family
DX: R51.9 Headache, unspecified (principal); G43.009 Migraine without aura, not intractable, without status migrainosus; H93.A3 Pulsatile tinnitus, bilateral; R06.83 Snoring; R53.83 Other fatigue; G47.9 Sleep disorder, unspecified; R51.0 Headache with orthostatic component, not elsewhere classified
CPT/HCPCS: 99204

== ENCOUNTER → 2023-09-07 08:36 | Outpatient (BNVA) | payer OTHER, SELFPAY | PROVIDERS: Visit Provider Nurse Practitioner Family ==

== ENCOUNTER 2023-09-10 09:00 | Outpatient (AMB) | payer OTHER, SELFPAY ==
[2023-09-10 09:04] VITALS: BP 122/68; PULSE 84; BMI 34.8
--- NOTE | 2023-09-10 09:04 | MHC.OFFVIS ---
Intake Vital Signs 09/10/23 09:04 Height 5 ft 4 in Weight 202 lb 13.204 oz BMI 34.8 BP 122/68 Blood Pressure Location Lt brachial Position Sitting Pulse 84 Intake Visit Reasons: 6 wk f/up stress echo/ echo/ holter Intake Note: 6 week follow up echo stress echo and holter pt is doing and feels good Allergies No Known Allergies Allergy (Verified 09/07/23 08:40) Medication List - Last Reconciled 09/10/23 by Theresa Gold NP-C estradiol-progesterone 0.5-100 mg 1 cap PO DAILY fremanezumab-vfrm (Ajovy) 225 mg (1.5 mL) subcut ONCE 30 days ibuprofen 400 mg PO Q6H PRN magnesium oxide 400 mg PO BEDTIME 30 days riboflavin (vitamin B2) 400 mg PO DAILY 30 days sumatriptan succinate (Imitrex) take 1 tab at onset of headache; if no relief, may repeat 1 tab after at least 2 hrs; max = 2 tabs/24 hrs PO ubrogepant (Ubrelvy) 50 - 100 mg (0.5 - 1 x 100 mg) PO ONCE PRN 30 days HPI 6 wk f/up stress echo/ echo/ holter HPI Details Dayan is a 42-year-old female who recently reported heart palpitations and tachycardia along with discomfort in her chest who underwent cardiac evaluation and now presents for follow-up. Today she reports that she has noticed her heart rate elevated but not as high as it had been in the past. She believes having COVID may have contributed to the more elevated rate she was noticing. She has recorded her heart rate up to 120s using a sat monitor in the last few weeks. No concerning chest discomfort since her last visit. No shortness of breath, lightheadedness, presyncope, syncope, falls, PND, orthopnea or edema. She has seen her neurologist and a sleep study was ordered on her. She also made an appointment with GI as she has a history of bariatric surgery and hiatal hernia repair. She believes some of her symptoms may be GI related. [facility] Surgical History H/O foot surgery H/O gastric sleeve Hx laparoscopic cholecystectomy Family History Mother SVT (supraventricular tachycardia) Social History Alcohol intake: current Alcohol intake frequency: holidays/special occasions only Substance Use Type: Marijuana Review of Systems Const All systems reviewed & are unremarkable except as noted in HPI and below Denies weakness ENT Denies dizziness Card Denies chest pain, Reports chest pain at rest, Denies chest pain with activity, Denies syncope, Reports rapid heart rate, Denies pedal edema, Denies edema, Denies leg edema, Denies lightheadedness, Denies palpitations, Denies dyspnea, Denies dyspnea on exertion and Denies orthopnea Resp Details: gasp at night Denies cough, Denies dyspnea and Denies dyspnea on exertion GI Denies hematochezia and Denies change in stool character Musc Denies abnormal gait, Denies muscle cramps, Denies muscle weakness, Denies numbness, Denies radiating pain into limb and Denies tingling Neuro Denies abnormal gait, Denies dizziness, Denies syncope, Denies numbness, Denies tingling and Denies weakness Endo Denies palpitations Physical Exam Vital Signs: Last Vital Signs Pulse 84 09/10/23 09:04 BP 122/68 09/10/23 09:04 BMI result Body Mass Index 34.8 Const General: cooperative, healthy appearing, comfortable and no acute distress Orientation/consciousness: patient oriented x3 Resp Effort & Inspection: normal respiratory effort Auscultation: clear to auscultation bilaterally, no rales, no rhonchi and no wheezes Cardio Jugular venous distension: no JVD Rate: regular rate Rhythm: regular rhythm Heart sounds: S1 normal heart sound present, S2 normal heart sound present, no murmurs and no rubs Neuro General: patient oriented x3 Extrem General: Yes normal to inspection Psych Appearance: grossly normal Mental Status: mental status grossly normal Speech and movement: Normal speech and movement present Assessment & Plan Assessment & Plan (1) Precordial chest pain: Code(s): R07.2 - Precordial pain Plan: On last visit reported chest discomfort: One is a sharp pain to the left chest region associated with rapid heart palpitations. Another is a mid sternal discomfort which occurs randomly that she believes is more GI related. No symptoms brought on by physical activity. EKG done 07/06/2023 showing sinus rhythm with possible anterior infarct, age undetermined, rate 96, normal NH, QTC and QRS intervals. Cardiac risk factor of prior smoking. Stress echocardiogram was done on 09/03/2023 with exercise 8 minutes 10 seconds, no angina, no EKG or echo evidence of ischemia. Echocardiogram done 08/25/2023 showed EF 54%, no valve abnormalities and no regional wall motion abnormalities. Test results reviewed with her in detail. She is going to pursue GI evaluation. Signs and symptoms of true angina reviewed with her. Cardiology follow-up as needed. Emergency care if ever needed for symptoms. (2) Palpitation: Code(s): R00.2 - Palpitations Plan: Report of rapid heart palpitations. Using a sat monitor she was able to record her heart rate as high as 220. ER notes state EMS had her heart rate at 150 and following vagal maneuvers heart rate was down to 100. She states years ago there was concerns that she may have SVT however she never followed through with evaluation and testing. She did not have problems for many years and now she is having recurrent issues. She was smoking marijuana the evening of the last ER visit. She also recently had COVID which she thinks may contribute to her symptoms. Echocardiogram showed essentially normal study. Holter monitor done 08/25/2023 for 3 days shows sinus rhythm with average heart rate 89, no significant arrhythmia or pauses. SVT has not entirely been excluded. Reviewed vagal maneuvers with her. She has not had any symptoms in the last 2 months. Emergency care if needed for sustained rapid heart palpitations. Going forward can do cardiac event monitor if she has recurrent symptoms. Reviewed reduction in stimulants, good hydration, exercise and get adequate sleep. A sleep study is being ordered by her neurologist. Cardiology follow-up will be as needed. (3) Tachycardia: Code(s): R00.0 - Tachycardia, unspecified Plan: As above (4) Abnormal EKG: Code(s): R94.31 - Abnormal electrocardiogram [ECG] [EKG] Plan: As above Plan Time spent on chart review, documentation, interview and assessment Coding Level of Care Code Est Pt Level 3 (15445) Diagnoses Precordial chest pain R07.2 Palpitation R00.2 Tachycardia R00.0 Abnormal EKG R94.31 Time Spent (min) 24
== END 2023-09-10 09:37 | disposition home or self-care (01) ==
PROVIDERS: Visit Provider Nurse Practitioner Family
DX: R07.2 Precordial pain (principal); R00.2 Palpitations; R00.0 Tachycardia, unspecified; R94.31 Abnormal electrocardiogram [ECG] [EKG]
CPT/HCPCS: 99213

== ENCOUNTER → 2023-09-10 09:00 | Outpatient (BNVA) | payer OTHER, SELFPAY | PROVIDERS: Visit Provider Nurse Practitioner Family ==

== ENCOUNTER 2023-09-15 09:32 | Outpatient (AMB) | payer OTHER, SELFPAY ==
[2023-09-15 10:48] VITALS: BP 118/70; PULSE 88; TEMP 36.6; O2SAT 98; BMI 35.5
--- NOTE | 2023-09-15 10:48 | AM.OFFWIN_ITS ---
Intake Vital Signs 09/15/23 10:48 Height 5 ft 4 in Weight 207 lb BMI 35.5 BP 118/70 Blood Pressure Location Lt brachial Position Sitting Pulse 88 Pulse Source Pulse Oximeter Temp 97.8 F Temp Source Temporal Artery Scan Pulse Oximetry (%) 98 Oxygen Delivery Method Room Air Intake Visit Reasons: M[employer]INE [employer] RT Side Face swelling Intake Note: pt is here today for rt side face swelling started today Patient Tobacco Use Status: Never used Tobacco Allergies No Known Allergies Allergy (Verified 09/15/23 11:22) Medication List - Last Reconciled 09/15/23 by Jaleel Rouse MD estradiol-progesterone 0.5-100 mg 1 cap PO DAILY fremanezumab-vfrm (Ajovy) 225 mg (1.5 mL) subcut ONCE 30 days magnesium oxide 400 mg PO BEDTIME 30 days meloxicam 15 mg PO DAILY riboflavin (vitamin B2) 400 mg PO DAILY 30 days sumatriptan succinate (Imitrex) take 1 tab at onset of headache; if no relief, may repeat 1 tab after at least 2 hrs; max = 2 tabs/24 hrs PO ubrogepant (Ubrelvy) 50 - 100 mg (0.5 - 1 x 100 mg) PO ONCE PRN 30 days Do you need a note to return to daycare/school/sports/work: Yes HPI [employer] RT Side Face swelling HPI Details 42-year-old female presents to the [facility] for a sick visit. Patient is reporting swelling on the right side of the face and neck pain since yesterday. Symptoms started late last night. No difficulty chewing. PFSH Surgical History H/O foot surgery H/O gastric sleeve Hx laparoscopic cholecystectomy Family History Mother SVT (supraventricular tachycardia) Social History Alcohol intake: current Alcohol intake frequency: holidays/special occasions only Patient Tobacco Use Status: Never used Tobacco Substance Use Type: Marijuana Physical Exam Vital Signs: Last Vital Signs Temp 97.8 F 09/15/23 10:48 Pulse 88 09/15/23 10:48 BP 118/70 09/15/23 10:48 Pulse Ox 98 09/15/23 10:48 Oxygen Delivery Method Room Air 09/15/23 10:48 BMI result Body Mass Index 35.5 Const General: cooperative and healthy appearing Nutritional Appearance: well nourished Orientation/consciousness: patient oriented x3 Limitations: no limitations HEENT Head: Yes normal to inspection Eyes General: appearance normal, both eyes and all related structures Neck Other: Discomfort just beneath the right angle of the jaw. No lymph nodes palpable. Neck: Yes normal visual inspection Chest Chest palpation & inspection: normal palpation of entire chest wall Resp Effort & Inspection: normal respiratory effort Neuro General: patient oriented x3 Assessment & Plan Assessment & Plan (1) Cervicalgia: Code(s): M54.2 - Cervicalgia Plan: Anti-inflammatory called in. If symptoms do not improve to follow-up here. No evidence of infection and therefore no antibiotics called in. Medications: New meloxicam 15 mg PO DAILY 14 tabs 0RF Discontinued ibuprofen Discontinued Reason: Patient Completed Course 400 mg PO Q6H PRN 20 tabs 0RF pain Coding Level of Care Code Est Pt Level 3 (97615) Diagnoses Cervicalgia M54.2
== END 2023-09-15 12:18 | disposition home or self-care (01) ==
PROVIDERS: Visit Provider Internal Medicine
DX: M54.2 Cervicalgia (principal)
CPT/HCPCS: 99213

== ENCOUNTER → 2023-10-05 09:45 | Outpatient (REF) | payer OTHER, SELFPAY | LOC: HO.SL 09:45 | PROVIDERS: Visit Provider Nurse Practitioner Family | DX: R06.83 Snoring (principal); R53.83 Other fatigue; G47.9 Sleep disorder, unspecified | CPT/HCPCS: 95806 ==

== ENCOUNTER → 2023-10-05 09:52 | Outpatient (BNV) | payer OTHER, SELFPAY | PROVIDERS: Visit Provider Psychiatry & Neurology Neurology | DX: R06.83 Snoring (principal) | CPT/HCPCS: 95806 ==

== ENCOUNTER 2023-10-22 12:55 | Emergency (ER) | payer SELFPAY ==
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
[2023-10-22 13:02] VITALS: BP 104/57; BP 110/70; PULSE 77; PULSE 88; RESP 18; TEMP 37; O2SAT 99; BMI 34.3
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
[2023-10-22] MEDS: Acetaminophen 325 MG TABLET 975 MG PO (16:00)
[2023-10-22 17:47] VITALS: BP 100/57; PULSE 74; RESP 18; TEMP 37.2; O2SAT 100
== END 2023-10-22 17:50 | disposition home or self-care (01) ==
PROVIDERS: Emergency Provider Emergency Medicine; PCP Physician Assistant
DX: S13.4XXA Sprain of ligaments of cervical spine, initial encounter (principal); M25.532 Pain in left wrist; M79.642 Pain in left hand; V89.2XXA Person injured in unspecified motor-vehicle accident, traffic, initial encounter; W22.11XA Striking against or struck by driver side automobile airbag, initial encounter; Y93.9 Activity, unspecified; Y92.410 Unspecified street and highway as the place of occurrence of the external cause; Y99.9 Unspecified external cause status
CPT/HCPCS: 70450; 72125; 73110; 73130; 99283; 99284

== ENCOUNTER 2023-10-26 12:50 | Outpatient (AMB) | payer OTHER, SELFPAY ==
[2023-10-26 12:56] VITALS: BP 110/80; PULSE 83; TEMP 36.7; O2SAT 100; BMI 35.4
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
== END 2023-10-26 14:16 | disposition home or self-care (01) ==
PROVIDERS: PCP Physician Assistant; Visit Provider Internal Medicine
DX: S60.222A Contusion of left hand, initial encounter (principal)
CPT/HCPCS: 99214

== ENCOUNTER 2023-10-30 08:07 | Outpatient (REF) | payer OTHER, SELFPAY | END 2023-10-30 08:08 | disposition home or self-care (01) | LOC: HO.MRI 08:07 | PROVIDERS: Visit Provider Nurse Practitioner Family | DX: Z13.89 Encounter for screening for other disorder (principal) ==

== ENCOUNTER 2023-11-04 07:40 | Outpatient (AMB) | payer OTHER, SELFPAY ==
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
== END 2023-11-04 08:55 | disposition home or self-care (01) ==
LOC: HO.HSMS 07:40
PROVIDERS: Visit Provider Nurse Practitioner Family
DX: G43.009 Migraine without aura, not intractable, without status migrainosus (principal); M54.2 Cervicalgia; R51.0 Headache with orthostatic component, not elsewhere classified
CPT/HCPCS: 99214

== ENCOUNTER → 2023-11-04 07:40 | Outpatient (BNVA) | payer OTHER, SELFPAY | PROVIDERS: Visit Provider Nurse Practitioner Family ==

== ENCOUNTER 2023-11-17 13:34 | Outpatient (REF) | payer OTHER, SELFPAY ==
--- NOTE | ~2023-11-17 | CT_ITS ---
EXAMINATION: CT ANGIOGRAM HEAD AND NECK CLINICAL INFORMATION: Headache with orthostatic component. COMPARISON: Noncontrast head CT dated 10/22/2023. TECHNIQUE: Axial images of the head were acquired from the skull base through the vertex prior to contrast administration.Test bolus sequences followed by intravenous administration 70 mL of Omnipaque 350 intravenous contrast. Helical imaging was performed in the axial plane from the mediastinum to the skull vertex. Delayed postcontrast imaging of the head was also performed. The data was processed at the cytotechnologist's workstation for generation of MIP sequences. All vessel stenosis measurements were performed in accordance with NASCET criteria. Fleischner guidelines were followed. DLP: 2245 mGy-cm. This CT examination was performed using dose optimization techniques as appropriate, variously including the following: *Automated exposure control *Adjustment of mA and/or kV according to patient size (this includes techniques or standardized protocols for targeted exams where dose is matched to indication/reason for exam; i.e. extremities or head) *Use of iterative reconstruction technique FINDINGS: HEAD: No intracranial mass, intercerebral edema, hemorrhage, or midline shift is evident. No abnormal enhancement is evident. The ventricles and sulci are normal in size and configuration. No extra-axial collections are appreciated. The paranasal sinuses are well-aerated and clear. SOFT TISSUES AND LUNG APICES: The visualized soft tissues of the neck and mediastinum are normal in appearance. The lung apices are clear. There are mild multilevel cervical spondylotic changes. NECK CTA: The aortic arch is normal in caliber. A conventional three-vessel branching pattern is present. No significant atherosclerotic plaque is present. The origins of the great vessels are widely patent. The common carotid arteries, internal carotid arteries and external carotid arteries are normal in appearance. No significant atherosclerotic plaque is visualized at the carotid bifurcations. The subclavian arteries are patent bilaterally. The origins of the vertebral arteries are nonstenotic. No focal stenosis is present along the course of either vertebral artery. CRANIAL CTA: The intracranial segments of the internal carotid arteries are normal in caliber. The anterior, middle and posterior cerebral arteries are normal. The intradural vertebral arteries and basilar artery are normal in caliber. The basilar artery branch vessels appear unremarkable. There is no evidence of aneurysm or arteriovenous malformation. The dural venous sinuses are well opacified. There is dominance of the right transverse jugular system. There is a large globular filling defect projecting into the lateral portion of the right transverse sinus likely representing a prominent pacchionian granulation. This results in moderate to severe narrowing of this portion of the sinus with associated with thinning of the adjacent temporal bone. 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 CT/CT angio head neck IMPRESSION: Normal CTA of the head and neck. No focal stenosis or evidence of vessel injury. No intracranial aneurysm or vascular malformation. 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
[2023-11-17] MEDS: iohexoL 350 MG/ML 100 ML INFUS..BTL IV (14:16)
== END 2023-11-17 13:35 | disposition home or self-care (01) ==
LOC: HO.CT 13:34
PROVIDERS: Visit Provider Nurse Practitioner Family
DX: R51.0 Headache with orthostatic component, not elsewhere classified (principal); R06.83 Snoring
CPT/HCPCS: 70496; 70498; Q9967

== ENCOUNTER 2023-12-04 08:10 | Outpatient (REF) | payer OTHER, SELFPAY ==
--- NOTE | ~2023-12-04 | MR_ITS ---
EXAMINATION: MR BRAIN WITHOUT AND WITH CONTRAST CLINICAL INFORMATION: Bilateral pulsatile tinnitus COMPARISON: CTA of the head and neck 11/17/2023 TECHNIQUE: Multiplanar multisequence MR imaging of the brain was obtained without and following the administration of 9 mL Gadavist intravenous contrast. FINDINGS: There is no acute infarct on diffusion-weighted imaging. There is no intracranial hemorrhage on iron-sensitive imaging. No extra-axial collection or mass effect/herniation. Normal parenchymal signal characteristics. No hydrocephalus. The ventricles are normal in morphology and size. No abnormal parenchymal or extra-axial enhancement. The major flow voids at the skull base are preserved. The midline structures are normal. The cerebellar tonsils are normally positioned. The craniocervical junction is normal. Marrow signal is within normal limits. The visualized soft tissues are without significant abnormality. No signal abnormality within the paranasal sinuses or within the mastoid air cells. MR/MR head/brain wo/w con IMPRESSION: Unremarkable contrast enhanced MRI of the brain.
[2023-12-04] MEDS: gadobutroL 10 ML VIAL IVPUSH (09:11)
== END 2023-12-04 08:11 | disposition home or self-care (01) ==
LOC: HO.MRI 08:10
PROVIDERS: Visit Provider Nurse Practitioner Family
DX: H93.A3 Pulsatile tinnitus, bilateral (principal); R51.0 Headache with orthostatic component, not elsewhere classified
CPT/HCPCS: 70553; A9585

== ENCOUNTER 2024-02-16 08:00 | Outpatient (RCR) | payer OTHER, SELFPAY ==
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
--- NOTE | 2024-03-18 07:17 | MHC.PT.DC ---
[facility] [place] Office [place] Office [place] Office [address] [phone] F: [phone] F: [phone] F: [phone] F: [phone] Physical Therapy Discharge Report Diagnosis: cervicalgia Date of Surgery: n/a Date of Evaluation: 01/06/24 Date of Discharge: 03/18/24 Treatments to Date: 7 Cancellations to Date: 9 No Shows to Date: 0 Discharge Status: Discharge Summary: Pt has not attended skilled PT in >30 days and therefore to be d/c. Electronically signed by: Jackie Swift, PT, DPT, ATC Please sign and return to therapist. Thank you for your referral.
== END 2024-03-18 07:17 | disposition home or self-care (01) ==
LOC: HO.PTCHIC 08:00
PROVIDERS: PCP Physician Assistant; Visit Provider Nurse Practitioner Family
DX: M54.2 Cervicalgia (principal); G43.009 Migraine without aura, not intractable, without status migrainosus
CPT/HCPCS: 97110; 97140; 97161

== ENCOUNTER 2024-02-22 13:47 | Outpatient (REF) | payer OTHER, SELFPAY ==
[2024-02-22 17:03] LABS: Influenza A PCR NEGATIVE (Negative); Influenza B PCR NEGATIVE (Negative); Resp Syncy Virus RNA Qual PCR NEGATIVE (Negative); SARS COV2 PCR INHOUSE NEGATIVE (Negative)
== END 2024-02-22 13:48 | disposition home or self-care (01) ==
LOC: HO.LAB 13:47
PROVIDERS: PCP Physician Assistant; Visit Provider Registered Nurse
DX: J06.9 Acute upper respiratory infection, unspecified (principal)
CPT/HCPCS: 0241U; 87880

== ENCOUNTER 2024-02-22 13:47 | Outpatient (AMB) | payer OTHER, SELFPAY ==
[2024-02-22 13:51] VITALS: BP 108/66; PULSE 92; TEMP 37.1; O2SAT 98; BMI 34.8
--- NOTE | 2024-02-22 13:51 | MHC.OFFWIV ---
Intake Vital Signs 02/22/24 13:51 Height 5 ft 4 in Weight 203 lb BMI 34.8 BP 108/66 Blood Pressure Location Lt brachial Position Sitting Pulse 92 Pulse Source Pulse Oximeter Temp 98.8 F Temp Source Oral Pulse Oximetry (%) 98 Oxygen Delivery Method Room Air Intake Visit Reasons: EP Sore throat Intake Note: pt c/o sore throat and mouth, fatigue. Started this morning Patient Tobacco Use Status: Former Tobacco user Allergies No Known Allergies Allergy (Verified 02/22/24 13:52) Do you need a note to return to daycare/school/sports/work: No HPI EP Sore throat HPI Details This note is constructed using voice recognition software. While every effort has been made to ensure accuracy, city superintendent errors may have been included. The patient is a 43 year old female who presents to the clinic today with pharyngitis and fatigue since this morning. 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 Due to her work it has been very difficult for her to avoid infection as patient's we will pull the mask gown and cough in her face, not intentionally trying to get her sick but just with the lack of their understanding about how to prevent spread of disease. She reports that she has actually had COVID 6 times as a result of this. She denies fever, chills, cough, shortness of breath, but does feel that her throat is quite sore. She looked in the back of her throat and saw a little spots and a different color redness that she had never seen before. She denies body aches. [facility] Surgical History H/O foot surgery H/O gastric sleeve Hx laparoscopic cholecystectomy Family History Mother SVT (supraventricular tachycardia) Social History Alcohol intake: current Alcohol intake frequency: holidays/special occasions only Patient Tobacco Use Status: Former Tobacco user Substance Use Type: Marijuana Review of Systems Const All systems reviewed & are unremarkable except as noted in HPI and below Physical Exam Vital Signs: Last Vital Signs Temp 98.8 F 02/22/24 13:51 Pulse 92 02/22/24 13:51 BP 108/66 02/22/24 13:51 Pulse Ox 98 02/22/24 13:51 Oxygen Delivery Method Room Air 02/22/24 13:51 BMI result Body Mass Index 34.8 Const General: cooperative, healthy appearing, comfortable and no acute distress Orientation/consciousness: patient oriented x3 Limitations: no limitations HEENT Head: Yes normal to inspection Ears: hearing grossly normal bilaterally, external ears normal and TM's normal bilaterally General nose exam: Normal external nose present, Normal nares present and No nasal discharge present Face and sinus: Yes normal facial exam and Yes sinuses nontender Mouth: Normal oral and palatal mucosa present and moist mucous membranes Throat: Yes tonsils normal, Yes uvula midline and Yes posterior oropharynx abnormal (Erythema surrounding small ulcers posterior upper palate) Eyes General: appearance normal, both eyes and all related structures Neck Neck: Yes normal visual inspection Resp Effort & Inspection: normal respiratory effort, able to speak in complete sentences, Actively coughing, no respiratory distress, not tachypneic, no tripod positioning and no use of accessory muscles Auscultation: clear to auscultation bilaterally Cardio Jugular venous distension: no JVD Rate: regular rate Rhythm: regular rhythm Heart sounds: S1 normal heart sound present, S2 normal heart sound present, no click, no gallops, no murmurs and no rubs Skin General skin exam: no rashes or lesions noted, elasticity normal and turgor normal Neuro General: patient oriented x3 Extrem General: Yes normal to inspection and Yes no clubbing, cyanosis or edema Results AMB Rapid Strep AMB Rapid Strep Negative Last Edit by Clarence Zaman CMA on 02/22/24 14:11 Results Reviewed Results Reviewed: Laboratory Last Values Strep Scn Rapid Clinic Negative 02/22/24 14:10 Assessment & Plan Assessment & Plan (1) URI (upper respiratory infection): Code(s): J06.9 - Acute upper respiratory infection, unspecified Qualifiers: URI type: unspecified URI Qualified Code(s): J06.9 - Acute upper respiratory infection, unspecified Plan: In office rapid strep negative. Viral swab obtained to rule out Covid based on symptoms. Advised mask wearing while symptomatic and quarantine per current CDC guidelines. Reviewed at home support methods including hydration, humidification, vix vapor rub, sinus rinse. Discussed treatment with antiviral therapy for covid with paxlovid including appropriate use and side effects, and need to start medication within 5 day of symptom onset, preferably within 48 hours of symptom onset. Patient wishes to proceed with paxlovid. Advised follow up with worsening symptoms such as dyspnea at rest, which would require emergent evaluation. (2) Hand, foot and mouth disease: Code(s): B08.4 - Enteroviral vesicular stomatitis with exanthem Plan: Physical examination also consistent with hqqk-[id number]-brkjg disease. Discussed viral etiology and symptomatic management. Advised follow up as needed. Plan See above for full details and plan. Orders: Orders SARS-CoV2/FLU/RSV Today J06.9 - Acute upper respiratory infection, unspecified AMB Rapid Strep Screen Today Z13.9 - Encounter for screening, unspecified Coding Level of Care Code Est Pt Level 3 (78814) Diagnoses Upper respiratory tract infection, unspecified type J06.9 URI type: unspecified URI Hand, foot and mouth disease B08.4
== END 2024-02-22 14:49 | disposition home or self-care (01) ==
PROVIDERS: PCP Physician Assistant; Visit Provider Registered Nurse
DX: J06.9 Acute upper respiratory infection, unspecified (principal); B08.4 Enteroviral vesicular stomatitis with exanthem; Z13.9 Encounter for screening, unspecified

== ENCOUNTER 2024-02-24 14:33 | Outpatient (AMB) | payer OTHER, SELFPAY ==
--- NOTE | 2024-02-24 14:45 | A.OFFVIS_ITS ---
Vital Signs 02/24/24 14:47 Height 5 ft 4 in Weight 206 lb BMI 35.4 Intake Visit Reasons: Follow up Intake Note: Patient presents for follow up. patient still having migraines not any better Allergies No Known Allergies Allergy (Verified 02/24/24 14:46) Medication List - Last Reconciled 02/24/24 by MARY Grover drospirenone-ethinyl estradiol 3-0.02 mg (Loryna (28)) 1 tab PO DAILY fremanezumab-vfrm (Ajovy) 225 mg subcut Q4W lamotrigine (Lamictal) 25 mg PO BID magnesium oxide 400 mg PO BEDTIME 30 days methylphenidate HCl ER (Concerta) 27 mg PO DAILY sumatriptan succinate (Imitrex) take 1 tab at onset of headache; if no relief, may repeat 1 tab after at least 2 hrs; max = 2 tabs/24 hrs PO 30 days ubrogepant (Ubrelvy) 50 - 100 mg (0.5 - 1 x 100 mg) PO ONCE PRN 30 days HPI Comments Details: 43-yr-old female presents for f/u visit. Pt is currently recovering from gwkuf-oqvn-xorjy dz infection- unclear how she acquired this. Pt reports she is having increased migraine attacks, has had 5-7 migraine days per week in the last month. She attributes this to the summer and [place] weather changes. She has not started Ajovy- unfortunately did not realize that the Ajovy needed to be refrigerated and thus 1st dose needed to be discarded. She has just rec'd 2nd dose- and will start soon. She did not receive the Ubrelvy. Using Sumatriptan prn. She feels her vision is constantly blurry. Her last eye exam was reported as normal. She has pulsatile tinnitus, where it feels like her head is in a speaker or she can hear her pulse. This is worse when she has a headache, and possibly worse when laying down- but not sure if this is because she just needs to sleep. She has had episodes of waking up with right inner pre-auricular pain. Endorses she may clench her teeth. Baseline headache characteristics: Aura: Previously never had visual aura. More recently the lights were flickering x's 3 days- this was f/b developing an eye stye. Headache: Severe, Varies- throbbing, pressure, stabbing. Location varies- left is more temporal. Right is more parietal and occipital. Mid-frontal. Neck. A/w Photophobia, phonophobia, osmophobia, allodynia, nausea, difficulty concentrating, word finding difficulties, tiredness, activity intolerance., Left eyelid droops , left facial stiffness/heavy/altered sensation- feels droopy but her boyfriend does not see it, tariq eye tearing and prolonged yawning. 12/04/23, MR/MR head/brain wo/w con IMPRESSION: Unremarkable contrast enhanced MRI of the brain. 11/17/23, CT/CT angio head neck IMPRESSION: Normal CTA of the head and neck. No focal stenosis or evidence of vessel injury. No intracranial aneurysm or vascular malformation. 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 PFSH Surgical History H/O foot surgery H/O gastric sleeve Hx laparoscopic cholecystectomy Family History Mother SVT (supraventricular tachycardia) Social History Alcohol intake: current Alcohol intake frequency: holidays/special occasions only Patient Tobacco Use Status: Former Tobacco user Substance Use Type: Marijuana Physical Exam Vital Signs: BMI result Body Mass Index 35.4 Const General: cooperative and no acute distress Orientation/consciousness: patient oriented x3 HEENT Other: Bilateral TMJ tenderness. Resp Effort & Inspection: normal respiratory effort and able to speak in complete sentences Neuro General: patient oriented x3 Cranial nerves: Yes CN's II-XII intact bilaterally Cognition (Neuro): normal cognition Psych Appearance: grossly normal Mental Status: mental status grossly normal Speech and movement: Normal speech and movement present Affect: normal affect Attitude: cooperative Assessment & Plan Assessment & Plan (1) Migraine without aura: Code(s): G43.009 - Migraine without aura, not intractable, without status migrainosus Category: Medical (2) Pulsatile tinnitus, bilateral: Code(s): H93.A3 - Pulsatile tinnitus, bilateral Category: Medical (3) Positional headache: Code(s): R51.0 - Headache with orthostatic component, not elsewhere classified Category: Medical (4) Vision changes: Code(s): H53.9 - Unspecified visual disturbance Category: Medical Plan Reviewed brain MRI and head/nack CTA- results notable for 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 ? Pt advised to undergo: In-lab PSG to further assess for sleep apnea as HST was inconclusive. LP w/ basic CSF studies to assess OP. Reviewed post-LP care- including rest, fluids, caffeine. Usually would offer Fioricet post-LP, however will hold this d/t polypharmacy and risk for med-med interactions. Ophthalmology eval for visual field testing. PT eval & tx for cervical/cranial- myofascial release and craniosacral tx. Future considerations- referral to [facility] neuroendovascular clinic. Trial of acetazolamide. ? ? For overall headache management: Continue to optimize good self-care, including but not limited to maintaining a healthy diet, adequate fluid intake, adequate sleep, and engaging in regular physical activity. For headache triggers: Track headaches. Light sensitivity tips: Patient may try blue light filtering glasses, green glasses, green light therapy.. Avoid wearing sunglasses inside. ? For acute headache treatment: Discussed importance of taking acute medications at the first sign of headache, however stressed importance of avoiding acute medication overuse (especially with combined headache medications). Again trial Ubrogepant (Ubrelvy) 100mg tab, 1/2 - 1 tab (50-100mg) at onset of headache, may repeat in 2 hours. Max of 2 tabs (200mg) per 24 hours. May adjunct with OTC Tylenol 650mg q 4 hours, Ibuprofen 600mg q 6 hours, or Naproxen 440mg q 12 hrs prn.. Previous acute migraine medication trials: Sumatriptan 50-100mg- helps sometimes, causes sleepiness. Eletriptan- helpful but caused profound sleepiness. Acute migraine medication contraindications: None at this time ? For headache prevention medication: Discussed that preventative medications should be taken routinely as prescribed for best effect, it may take several weeks for full effect to take effect. Riboflavin 400mg qam Magnesium 400mg qhs Again start Ajovy 225 mg subcu q.month. Reviewed potential adverse effects of Ajovy, including but not limited to injection site reactions. Previous migraine prevention medication trials: Topiramate- caused hallucinations, cognitive difficulties, taste changes, Nortriptyline- ? effect, Gabapentin- caused hypotension, Propranolol- ineffective and caused hypotension, Lamotrigene- was used for mood, did help headaches some, Depakote- ineffective. Migraine prevention medication contraindications: None at this time ? Pt to follow-up in 3 months or sooner prn. Orders: Orders CSF Cell Ct w Diff X2 Today H53.9 - Unspecified visual disturbance, H93.A3 - Pulsatile tinnitus, bilateral, R51.0 - Headache with orthostatic component, not elsewhere classified CSF Culture + Gram stain Today H53.9 - Unspecified visual disturbance, H93.A3 - Pulsatile tinnitus, bilateral, R51.0 - Headache with orthostatic component, not elsewhere classified CSF Glucose Today H53.9 - Unspecified visual disturbance, H93.A3 - Pulsatile tinnitus, bilateral, R51.0 - Headache with orthostatic component, not elsewhere classified CSF Total Protein Today H53.9 - Unspecified visual disturbance, H93.A3 - Pulsatile tinnitus, bilateral, R51.0 - Headache with orthostatic component, not elsewhere classified FL guided lumbar puncture LP Today H53.9 - Unspecified visual disturbance, H93.A3 - Pulsatile tinnitus, bilateral, R51.0 - Headache with orthostatic component, not elsewhere classified CSF Cell Count w Diff Today H53.9 - Unspecified visual disturbance, H93.A3 - Pulsatile tinnitus, bilateral, R51.0 - Headache with orthostatic component, not elsewhere classified Referrals Ophthalmology Referral G43.009 - Migraine without aura, not intractable, without status migrainosus, H53.9 - Unspecified visual disturbance, H93.A3 - Pulsatile tinnitus, bilateral, R51.0 - Headache with orthostatic component, not elsewhere classified Medications: Changed From sumatriptan succinate (Imitrex) take 1 tab at onset of headache; if no relief, may repeat 1 tab after at least 2 hrs; max = 2 tabs/24 hrs PO G43.009 - Migraine without aura, not intractable, without status migrainosus To sumatriptan succinate (Imitrex) take 1 tab at onset of headache; if no relief, may repeat 1 tab after at least 2 hrs; max = 2 tabs/24 hrs PO 30 days 12 tabs 6RF G43.009 - Migraine without aura, not intractable, without status migrainosus Coding Level of Care Code Est Pt Level 4 (24014) Diagnoses Migraine without aura G43.009 Pulsatile tinnitus, bilateral H93.A3 Positional headache R51.0 Vision changes H53.9
[2024-02-24 14:47] VITALS: BMI 35.4
== END 2024-02-24 15:43 | disposition home or self-care (01) ==
PROVIDERS: PCP Physician Assistant; Visit Provider Nurse Practitioner Family
DX: G43.009 Migraine without aura, not intractable, without status migrainosus (principal); H93.A3 Pulsatile tinnitus, bilateral; R51.0 Headache with orthostatic component, not elsewhere classified; H53.9 Unspecified visual disturbance
CPT/HCPCS: 99214

== ENCOUNTER → 2024-02-24 14:33 | Outpatient (BNVA) | payer OTHER, SELFPAY | PROVIDERS: PCP Physician Assistant; Visit Provider Nurse Practitioner Family ==

== ENCOUNTER 2024-03-30 09:27 | Day surgery (SDC) | payer OTHER, SELFPAY ==
--- NOTE | ~2024-03-30 | FL_ITS ---
FLUOROSCOPIC LUMBAR PUNCTURE Indication: Headaches. Risks and benefits and possible complications were discussed with the patient and the consent form was signed. Patient was placed prone on the fluoroscopy table. The back was prepped and draped in routine sterile fashion. Betadine was used as a skin antiseptic. Utilizing fluoroscopic guidance, the L3-4 interlaminar space was accessed with a 22 gauge Marie spinal needle and clear CSF fluid obtained. Opening pressure was 20 cm H2O. 6 cc of fluid was sent for analysis. The needle was removed without immediate complications. Total fluoroscopy time: 1 minute 37 seconds FL/FL guided lumbar puncture LP Impression: Successful fluoroscopic guided lumbar puncture. Opening pressure was 20 cm H2O. This procedure was performed by Tony Newell PA-C and supervised by Dr. Alejo. Electronically signed by: Margarito Alejo MD 03/30/2024 04:07 PM EDT
[2024-03-30 09:41] LABS: UPreg QC Valid YES; Urine Pregnancy NEGATIVE (NEGATIVE)
[2024-03-30 09:59] VITALS: BMI 36.1
[2024-03-30 10:17] VITALS: BP 121/70; PULSE 82; RESP 16; TEMP 36.7; O2SAT 98
[2024-03-30 12:00] VITALS: BP 127/73; PULSE 78; RESP 17; TEMP 37.1; O2SAT 98
[2024-03-30 12:15] VITALS: BP 128/73; PULSE 78; RESP 17; O2SAT 98
[2024-03-30 12:25] VITALS: BP 120/70; PULSE 84; RESP 16; TEMP 36.6; O2SAT 98
[2024-03-30 13:22] LABS: Appearance CSF CLEAR; CSF Monos 1 %; CSF Tube # 1; Color CSF COLORLESS; Lymphocytes CSF 2 %; Neutrophils CSF 1 %; Red Blood Cell CSF 301 MM*3; White Blood Cell CSF 1 MM*3
[2024-03-30 13:24] LABS: CSF Appearance Clear, Colorless; CSF Tube # 1
[2024-03-30 13:34] LABS: Glucose CSF 61 mg/dL; Total Protein CSF 29.8 mg/dL (15-45)
[2024-03-30 14:03] LABS: Appearance CSF CLEAR; CSF Monos 1 %; CSF Tube # 2; Color CSF COLORLESS; Lymphocytes CSF 4 %; Red Blood Cell CSF 17 MM*3; White Blood Cell CSF 2 MM*3
== END 2024-03-30 12:48 | disposition home or self-care (01) ==
PROVIDERS: Physician Assistant Surgical; Radiology Vascular & Interventional Radiology; PCP Physician Assistant; Visit Provider Nurse Practitioner Family
DX: G43.009 Migraine without aura, not intractable, without status migrainosus (principal); H93.A3 Pulsatile tinnitus, bilateral; R51.0 Headache with orthostatic component, not elsewhere classified; H53.9 Unspecified visual disturbance; Z79.899 Other long term (current) drug therapy; Z98.84 Bariatric surgery status; Z90.49 Acquired absence of other specified parts of digestive tract; Z87.891 Personal history of nicotine dependence
CPT/HCPCS: 62328; 81025; 82945; 84157; 87015; 87070; 87205; 89051; C1769; C1788; J2003

== ENCOUNTER → 2024-03-30 10:56 | Outpatient (BNV) | payer OTHER, SELFPAY | PROVIDERS: PCP Physician Assistant; Visit Provider Radiology Diagnostic Radiology | DX: R51.9 Headache, unspecified (principal) | CPT/HCPCS: 62328 ==

== ENCOUNTER 2024-03-31 07:30 | Outpatient (AMB) | payer OTHER, SELFPAY ==
--- NOTE | 2024-03-31 07:30 | MHC.OFFVIS ---
Intake Visit Reasons: 1mo F/U Intake Note: Patient presents for 1 month follow up. Allergies No Known Allergies Allergy (Verified 03/31/24 07:30) Medication List - Last Reconciled 03/31/24 by MARY Grover acetazolamide 125 mg PO TID 30 days drospirenone-ethinyl estradiol 3-0.02 mg (Loryna (28)) 1 tab PO DAILY fremanezumab-vfrm (Ajovy) 225 mg subcut Q4W lamotrigine (Lamictal) 25 mg PO BID magnesium oxide 400 mg PO BEDTIME 30 days methylphenidate HCl ER (Concerta) 27 mg PO DAILY sumatriptan succinate (Imitrex) take 1 tab at onset of headache; if no relief, may repeat 1 tab after at least 2 hrs; max = 2 tabs/24 hrs PO 30 days ubrogepant (Ubrelvy) 50 - 100 mg (0.5 - 1 x 100 mg) PO ONCE PRN 30 days HPI Comments Details: 43-yr-old female presents for f/u televideo visit. Pt states she has recovered from the whkge-epcz-jckmz dz infection, but then came down with Covid-19. Pt has not had vision exam yet- she did hear from [facility] but has not called them back yet. She had LP yesterday, per pt it was a traumatic tap. OP was 20mmHg. She had not noticed any postural headache, but as the visit progressed pt started to develop headache a/w nausea. CSF studies were WNL, elevated RBCs likely d/t traumatic tap. 03/30/24 11:46 CSF Tube Number 2 CSF Volume 3.0 CSF Appearance CLEAR CSF Color COLORLESS CSF WBC 2 CSF RBC 17 CSF Neutrophils 1 CSF Lymphocytes 4 CSF Monocytes % 1 CSF Appearance (b) Clear, Colorless CSF Glucose 61 CSF Total Protein 29.8 She feels her vision is still constantly blurry. Her last eye exam was reported as normal. She has pulsatile tinnitus, where it feels like her head is in a speaker or she can hear her pulse. She is also noticing ringing in her ear. This is worse when she has a headache. And is a/w feeling flushed. She feels that she noticed this more when propped up. She has had episodes of waking up with right inner pre-auricular pain. Endorses she may clench her teeth. Request for in-ronaldo sleep study was denied. She states that her sleep has been better recently. HST was inconclusive. Continues to have difficulty maintaining sleep, snoring, fatigue and daytime tiredness. Pt started Ajovy 1.5-2 wks ago- states she accidentally jerked so did not receive full dose, however, she thinks it has been helpful. has not had a migraine (outside of just now) since. She attributes this to the summer and [place] weather changes. She did receive Ubrelvy- helpful. Using Sumatriptan prn. Baseline headache characteristics: Aura: Previously never had visual aura. More recently the lights were flickering x's 3 days- this was f/b developing an eye stye. Headache: Severe, Varies- throbbing, pressure, stabbing. Location varies- left is more temporal. Right is more parietal and occipital. Mid-frontal. Neck. A/w Photophobia, phonophobia, osmophobia, allodynia, nausea, difficulty concentrating, word finding difficulties, tiredness, activity intolerance., Left eyelid droops , left facial stiffness/heavy/altered sensation- feels droopy but her boyfriend does not see it, tariq eye tearing and prolonged yawning. 12/04/23, MR/MR head/brain wo/w con IMPRESSION: Unremarkable contrast enhanced MRI of the brain. 11/17/23, CT/CT angio head neck IMPRESSION: Normal CTA of the head and neck. No focal stenosis or evidence of vessel injury. No intracranial aneurysm or vascular malformation. 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 PFSH Surgical History H/O foot surgery H/O gastric sleeve Hx laparoscopic cholecystectomy Family History Mother SVT (supraventricular tachycardia) Social History Alcohol intake: current Alcohol intake frequency: holidays/special occasions only Patient Tobacco Use Status: Former Tobacco user Substance Use Type: Marijuana Physical Exam Const General: cooperative and no acute distress Orientation/consciousness: patient oriented x3 HEENT Other: mild hoarseness Resp Effort & Inspection: normal respiratory effort and able to speak in complete sentences Neuro General: patient oriented x3 Cognition (Neuro): normal cognition Psych Appearance: grossly normal Mental Status: mental status grossly normal Speech and movement: Normal speech and movement present Affect: normal affect Attitude: cooperative Telehealth Telehealth Telehealth Platform: [employer] Location of provider rendering services: practice address Location of patient: address on file Patient Identification confirmed using: Name, : Yes Telehealth method: video Patient verbally consented to treatment: Yes Patient verbally consented to billing insurance company: Yes Patient informed of any privacy concerns related to visit: Yes Minutes spent on Phone/Video with Pt.: 27 Assessment & Plan Assessment & Plan (1) Vision changes: Code(s): H53.9 - Unspecified visual disturbance Category: Medical (2) Migraine without aura: Code(s): G43.009 - Migraine without aura, not intractable, without status migrainosus Category: Medical (3) Pulsatile tinnitus, bilateral: Code(s): H93.A3 - Pulsatile tinnitus, bilateral Category: Medical (4) Positional headache: Code(s): R51.0 - Headache with orthostatic component, not elsewhere classified Category: Medical Plan For blurry vision, positional headaches, pulsatile tinnitus. 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 Reviewed LP- OP 20 cmH2O- high end of normal. CSF studies- WNL, RBC presence likely d/t traumatic tap. Reviewed post-LP care- including rest, fluids, caffeine. May use Ubrelvy and Sumatriptan prn. Pt advised to call [facility] to make appoint for visual field testing. After eye exam, trial acetazolamide 125mg po tid- check CBC/CMP 1 month after starting. Future considerations- referral to [facility] neuroendovascular clinic. Will hold In-lab PSG, as pt is sleeping better. PT eval & tx for cervical/cranial- myofascial release and craniosacral tx. ? For overall headache management: Continue to optimize good self-care, including but not limited to maintaining a healthy diet, adequate fluid intake, adequate sleep, and engaging in regular physical activity. For headache triggers: Track headaches. Light sensitivity tips: Patient may try blue light filtering glasses, green glasses, green light therapy.. Avoid wearing sunglasses inside. ? For acute headache treatment: Discussed importance of taking acute medications at the first sign of headache, however stressed importance of avoiding acute medication overuse (especially with combined headache medications). Ubrogepant (Ubrelvy) 100mg tab, 1/2 - 1 tab (50-100mg) at onset of headache, may repeat in 2 hours. Max of 2 tabs (200mg) per 24 hours. May adjunct with OTC Tylenol 650mg q 4 hours, Ibuprofen 600mg q 6 hours, or Naproxen 440mg q 12 hrs prn.. Previous acute migraine medication trials: Sumatriptan 50-100mg- helps sometimes, causes sleepiness. Eletriptan- helpful but caused profound sleepiness. Acute migraine medication contraindications: None at this time ? For headache prevention medication: Discussed that preventative medications should be taken routinely as prescribed for best effect, it may take several weeks for full effect to take effect. Riboflavin 400mg qam Magnesium 400mg qhs Continue Ajovy 225 mg subcu q.month. Reviewed potential adverse effects of Ajovy, including but not limited to injection site reactions. Previous migraine prevention medication trials: Topiramate- caused hallucinations, cognitive difficulties, taste changes, Nortriptyline- ? effect, Gabapentin- caused hypotension, Propranolol- ineffective and caused hypotension, Lamotrigene- was used for mood, did help headaches some, Depakote- ineffective. Migraine prevention medication contraindications: None at this time ? Pt to follow-up in 3 months or sooner prn. Orders: Orders Complete Blood Count Auto Diff Today H53.9 - Unspecified visual disturbance, R53.83 - Other fatigue Comprehensive Met. Panel Today H53.9 - Unspecified visual disturbance, R53.83 - Other fatigue Medications: New acetazolamide 125 mg PO TID 30 days 90 tabs 1RF Coding Level of Care Code Tele Est Pt Level 4 (50313) Diagnoses Vision changes H53.9 Migraine without aura G43.009 Pulsatile tinnitus, bilateral H93.A3 Positional headache R51.0
== END 2024-03-31 09:00 | disposition home or self-care (01) ==
LOC: HO.HSMS 07:30
PROVIDERS: PCP Physician Assistant; Visit Provider Nurse Practitioner Family
DX: H53.9 Unspecified visual disturbance (principal); G43.009 Migraine without aura, not intractable, without status migrainosus; H93.A3 Pulsatile tinnitus, bilateral; R51.0 Headache with orthostatic component, not elsewhere classified
CPT/HCPCS: 99214

== ENCOUNTER → 2024-03-31 07:30 | Outpatient (BNVA) | payer OTHER, SELFPAY | PROVIDERS: PCP Physician Assistant; Visit Provider Nurse Practitioner Family ==

== ENCOUNTER 2025-01-30 15:25 | Outpatient (AMB) | payer OTHER, SELFPAY ==
--- NOTE | 2025-01-30 15:27 | A.OFFVIS_ITS ---
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 Patient reports that while taking Ajovy, she was having approximately. 3 migraine days per month, which were usually responsive to her as-needed sumatriptan 50-100mg. She notes that before starting Ajovy, she was having 15- 16 migraine days per month. Unfortunately, her insurance recently changed, and her new insurance denied the request for Ajovy, which resulted in a lapse in her Ajovy therapy. And thus, unfortunately, she is again having 15-16 typical migraine days per month. She states that Ubrelvy was not more effective than sumatriptan. She is also having increased neck tightness and discomfort. Noticing insoles cervical cracking. Notes that she and her family are prone to a left head tilt. She denies diplopia. She reports that PT in the past was helpful, except when they were a bit too aggressive with the myofascial release therapy. She does note intermittent blurry vision, such as when reading or looking at her still. She had a recent optometry eval, but has not had a comprehensive eye exam. She uses contacts for distant vision. She has not yet used corrective lenses for near/reading vision. She never started Acetazolamide, as her insurance lapsed and she did not have the previously requested eye exam. She is not sleeping as well. She feels fortunate that her work is flexible, and if she has a severe migraine, she can adjust her work schedule accordingly. 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 Pt has not had vision exam yet- she did hear from [facility] but has not called them back yet. She had LP yesterday, per pt it was a traumatic tap. OP was 20mmHg. She had not noticed any postural headache, but as the visit progressed pt started to develop headache a/w nausea. CSF studies were WNL, elevated RBCs likely d/t traumatic tap. 03/30/24 11:46 CSF Tube Number 2 CSF Volume 3.0 CSF Appearance CLEAR CSF Color COLORLESS CSF WBC 2 CSF RBC 17 CSF Neutrophils 1 CSF Lymphocytes 4 CSF Monocytes % 1 CSF Appearance (b) Clear, Colorless CSF Glucose 61 CSF Total Protein 29.8 She feels her vision is still constantly blurry. Her last eye exam was reported as normal. She has pulsatile tinnitus, where it feels like her head is in a speaker or she can hear her pulse. She is also noticing ringing in her ear. This is worse when she has a headache. And is a/w feeling flushed. She feels that she noticed this more when propped up. She has had episodes of waking up with right inner pre-auricular pain. Endorses she may clench her teeth. Request for in-ronaldo sleep study was denied. She states that her sleep has been better recently. HST was inconclusive. Continues to have difficulty maintaining sleep, snoring, fatigue and daytime tiredness. Pt started Ajovy 1.5-2 wks ago- states she accidentally jerked so did not receive full dose, however, she thinks it has been helpful. has not had a migraine (outside of just now) since. She attributes this to the summer and [place] weather changes. She did receive Ubrelvy- helpful. Using Sumatriptan prn. Baseline headache characteristics: Aura: Previously never had visual aura. More recently the lights were flickering x's 3 days- this was f/b developing an eye stye. Headache: Severe, Varies- throbbing, pressure, stabbing. Location varies- left is more temporal. Right is more parietal and occipital. Mid-frontal. Neck. A/w Photophobia, phonophobia, osmophobia, allodynia, nausea, difficulty concentrating, word finding difficulties, tiredness, activity intolerance., Left eyelid droops , left facial stiffness/heavy/altered sensation- feels droopy but her boyfriend does not see it, tariq eye tearing and prolonged yawning. 12/04/23, MR/MR head/brain wo/w con IMPRESSION: Unremarkable contrast enhanced MRI of the brain. 11/17/23, CT/CT angio head neck IMPRESSION: Normal CTA of the head and neck. No focal stenosis or evidence of vessel injury. No intracranial aneurysm or vascular malformation. 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 PFSH Surgical History H/O foot surgery H/O gastric sleeve Hx laparoscopic cholecystectomy Family History Mother SVT (supraventricular tachycardia) Social History Alcohol intake: current Alcohol intake frequency: holidays/special occasions only Patient Tobacco Use Status: Former Tobacco user Substance Use Type: Marijuana Physical Exam Vital Signs: Last Vital Signs Pulse 99 01/30/25 15:30 BP 104/78 01/30/25 15:30 Pulse Ox 98 01/30/25 15:30 Oxygen Delivery Method Room Air 01/30/25 15:30 BMI result Body Mass Index 34.3 Const General: cooperative and no acute distress Orientation/consciousness: patient oriented x3 HEENT Other: mild hoarseness Resp Effort & Inspection: normal respiratory effort and able to speak in complete sentences Neuro Other: Photophobia Left head tilt with mild forward head posture and bilateral elevated shoulder posture, able to self-correct Bilateral posterior cervical tightness and tenderness Slightly limited cervical range of motion, with nonradiating discomfort Negative bilateral Spurling Muscle strength 5/5 throughout General: patient oriented x3 Cognition (Neuro): normal cognition Psych Appearance: grossly normal Mental Status: mental status grossly normal Speech and movement: Normal speech and movement present Affect: normal affect Attitude: cooperative Telehealth Telehealth Telehealth Platform: CardiaLen Location of provider rendering services: practice address Location of patient: address on file Patient Identification confirmed using: Name, : Yes Telehealth method: video Patient verbally consented to treatment: Yes Patient verbally consented to billing insurance company: Yes Patient informed of any privacy concerns related to visit: Yes Minutes spent on Phone/Video with Pt.: 27 Assessment & Plan Assessment & Plan (1) Vision changes: Code(s): H53.9 - Unspecified visual disturbance Category: Medical (2) Pulsatile tinnitus, bilateral: Code(s): H93.A3 - Pulsatile tinnitus, bilateral Category: Medical (3) Positional headache: Code(s): R51.0 - Headache with orthostatic component, not elsewhere classified Category: Medical (4) Cervicalgia: Code(s): M54.2 - Cervicalgia Category: Medical (5) Chronic migraine without aura without status migrainosus, not intractable: Code(s): G43.709 - Chronic migraine without aura, not intractable, without status migrainosus Category: Medical Plan For blurry vision, positional headaches, and pulsatile tinnitus: * Previous workup: * 12/04/2023 brain MRI and head/neck CTA- results notable for 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 * 11/17/2023 LP- OP 20 cmH2O- high end of normal. CSF studies- WNL, RBC presence likely d/t traumatic tap. * Again advised to call [facility] to make an appointment for visual field testing. * After eye exam, we will reconsider trial of acetazolamide 125mg po tid- check CBC/CMP 1 month after starting. * Future considerations- referral to [facility] neuroendovascular clinic. For overall headache management: Continue to optimize good self-care, including but not limited to maintaining a healthy diet, adequate fluid intake, adequate sleep, and engaging in regular physical activity. * For headache triggers: * Track headaches. * Light sensitivity tips: * Blue light filtering glasses, green glasses, and green light therapy can all help to reduce light sensitivity * Avoid wearing sunglasses inside to reduce the risk of exacerbating light sensitivity. * PT eval and treat for myofascial release, posture, cervicalgia, and migraine headache * Future considerations: Sleep study, cervical injection therapy for left head tilt For acute headache treatment: Take acute medications at the first sign of headache; however s avoid acute medication overuse (especially with combined headache medications). * Discontinue Ubrogepant (Ubrelvy) 100mg tab- was not fully effective. * Continue Sumatriptan 100mg tab, 1/2 - 1 tab (50-100mg) at onset of headache, may repeat in 2 hours. Max of 2 tabs (200mg) per 24 hours. * May take sumatriptan with OTC Tylenol 650-1,000mg every 4-6 hours as needed * Previous acute migraine medication trials: Sumatriptan 50-100mg- helps sometimes, causes sleepiness. Eletriptan- helpful but caused profound sleepiness. Ubrogepant (Ubrelvy) 100mg tab- was not fully effective. * Acute migraine medication contraindications: NSAIDs due to history of gastric sleeve For headache prevention medication: * Resume Riboflavin 400mg qam * Resume Magnesium 400mg qhs * Resume Ajovy 225 mg subcutaneous injection every 30 days, as the patient has had greater than 75 % reduction in monthly migraine days with a significant reduction in acute migraine medication use when taking Ajovy consistently. * Previous migraine prevention medication trials: Topiramate- caused hallucinations, cognitive difficulties, taste changes, Nortriptyline- ineffec tive, Gabapentin- caused hypotension, Propranolol- ineffective and caused hypotension, Lamotrigine- was used for mood, did help headaches somewhat, Depakote- ineffective. * Migraine prevention medication contraindications: None at this time Follow up in 3-6 months or sooner PRN. Orders: Orders PT Evaluation and Treatment Today G43.009 - Migraine without aura, not intractable, without status migrainosus, M54.2 - Cervicalgia Medications: New fremanezumab-vfrm (Ajovy) administer 225mg sc q month 225 mg (1.5 mL) subcut ONCE 1.5 mL 6RF 30 days Changed From magnesium oxide may hold for loose stools 400 mg PO BEDTIME 30 days 30 tabs 6RF To magnesium oxide may hold for loose stools 400 mg PO BEDTIME 90 tabs 3RF 90 days Refilled sumatriptan succinate (Imitrex) take 1 tab at onset of headache; if no relief, may repeat 1 tab after at least 2 hrs; max = 2 tabs/24 hrs PO 12 tabs 6RF 30 days G43.009 - Migraine without aura, not intractable, without status migrainosus Coding Level of Care Code Est Pt Level 4 (65589) Diagnoses Vision changes H53.9 Pulsatile tinnitus, bilateral H93.A3 Positional headache R51.0 Cervicalgia M54.2 Chronic migraine without aura without status migrainosus, not intractable G43.709
[2025-01-30 15:30] VITALS: BP 104/78; PULSE 99; O2SAT 98; BMI 34.3
--- OUTSIDE RECORDS SUMMARY | 2025-01-30 17:02 | XMS_ITS | Encounter Summary ---
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 Name Role Phone Unknown, Unknown Primary Care Provider Afsaneh hernandez Encounter Details Date Type Department Care Team (Late st Contact Info) Description 08/16/2019 Ancillary Orders Virtual Department [address] [place] [address] Aniceto Garcia MD [address] [place] [id number] Right calf pain Social History Tobacco Use Types Packs/Day Years Used Date Smoking Tobacco: Never Assessed Comments Unknown Sex and Gender Information Value Date Recorded Sex Assigned at Not on file Legal Sex Female 2:06 PM EDT Gender Identity Not on file Sexual Orientation Not on file documented as of this encounter Plan of Treatment Not on file documented as of this encounter Results * US Lower Extremity Veins Duplex (Right) (08/16/2019 3:39 PM EDT) Anatomical Region Laterality Modality Hip Right, Thigh Right, Knee Right, Leg Right, Ankle Right, Foot Right Ultrasound 08/16/2019 3:47 PM EDT Impressions 08/16/2019 3:48 PM EDT No evidence of DVT. Small popliteal cyst. POS [id number] Narrative 08/16/2019 3:48 PM EDT Comparison: None Combined real-time, color flow and Doppler evaluation of the deep venous system of the right leg shows readily compressible veins with a normal Doppler waveform and easily elicited augmentation from the groin through the trifurcation vessels into the mid calf. A 1.8 x 1.3 x 0.5 cm popliteal cyst is incidentally noted. Procedure Note Na Crowell MD - 08/16/2019 Comparison: None Combined real-time, color flow and Doppler evaluation of the deep venoussystem of the right leg shows readily compressible veins with a normalDoppler waveform and easily elicited augmentation from the groin throughthe trifurcation vessels into the mid calf. A 1.8 x 1.3 x 0.5 cm popliteal cyst is incidentally noted. IMPRESSION: No evidence of DVT. Small popliteal cyst. POS [id number] Aniceto Garcia MD US VASCULAR Final Result documented in this encounter Visit Diagnoses Diagnosis Right calf pain Right calf pain documented in this encounter Care Teams Gasoline Locomotive Crane Operator Relationship Specialty Start Date End Date Unknown, Unknown, PCP - General 08/16/19 documented as of this encounter Additional Source Comments The information contained in this document represents components of the legal health record. It is not the complete legal health record.[facility]
--- OUTSIDE RECORDS SUMMARY | 2025-01-30 17:02 | XMS_ITS | Clinical Summary ---
Author Organization [facility] Address [address] [address] Phone Care Team Providers Care Legal Receptionist Name Role Phone Unknown, Unknown Primary Care Provider Afsaneh hernandez Immunizations Immunization Administration Dates Next Due COVID-19 (Pre-03/30) Moderna Vaccine, mRNA, PF 0 09/19/2020 Tdap 11/27/2021 Social History Tobacco Use Types Packs/Day Years Used Date Smoking Tobacco: Never Assessed Education Answer Date Recorded Are you interested in more education? Not on hakeem e 10/03/2022 Are you concerned about learning? Not on file 10/03/2022 No 10/03/2022 No 10/03/2022 Digital Access Answer Date Recorded No 11/01/2022 No 11/01/2022 No 11/01/2022 Reliable internet access at home? Not on file 11/01/2022 Device with a working camera? Not on file Comments Unknown Sex and Gender Information Value Date Recorded Sex Assigned at Not on file Legal Sex Female 2:06 PM EDT Gender Identity Not on file Sexual Orientation Not on file Plan of Treatment Health Maintenance Due Date Last Done Comments DEPRESSION SCREENING 1994 SMOKING Hx and SMOKELESS TOB ACCO SCREENING 10/22/1995 HEPATITIS C SCREENING 2000 HIV ONE-TIME SCREENING (18-6 5 YEARS) 2000 PAP SMEAR 10/22/2003 MAMMOGRAM 2022 COVID-19 VACCINE (2023-2 5 season) 2024 09/19/2020 Adult Td,Tdap Booster 11/28/2031 11/27/2021 HEPATITIS A VACCINES Aged Out No long er eligible based on patient's age to complete this topic HIB VACCINES Aged Out No longer eligi ble based on patient's age to complete this topic MENINGOCOCCAL VACCINES (ACWY) Aged Out No longer eligible based on patient's age to complete this topic MENINGOCOCCAL VACCINES (B) Aged Out N o longer eligible based on patient's age to complete this topic PNEUMOCOCCAL VACCINES (0-49 years) Aged Out No longer eligible based on patient's age to complete this topic Medical Devices Not on file [place] [id number] [place] [address] Care Teams Legal Receptionist Relationship Specialty Start Date End Date Unknown, Unknown, PCP - General 08/16/19 Additional Source Comments The information contained in this document represents components of the legal health record. It is not the complete legal health record.[facility]
== END 2025-01-30 16:34 | disposition home or self-care (01) ==
LOC: HO.HSMS 15:25
PROVIDERS: PCP Physician Assistant; Visit Provider Nurse Practitioner Family
DX: H53.9 Unspecified visual disturbance (principal); H93.A3 Pulsatile tinnitus, bilateral; R51.0 Headache with orthostatic component, not elsewhere classified; M54.2 Cervicalgia; G43.709 Chronic migraine without aura, not intractable, without status migrainosus
CPT/HCPCS: 99214

== ENCOUNTER 2025-03-14 14:52 | Outpatient (AMB) | payer OTHER, SELFPAY ==
--- NOTE | 2025-03-14 14:54 | A.OFFVIS_ITS ---
Vital Signs 03/14/25 14:55 Height 5 ft 4 in Weight 200 lb 2 oz BMI 34.3 BP 118/82 Blood Pressure Location Rt brachial Position Sitting Pulse 126 H Pulse Source Pulse Oximeter Pulse Oximetry (%) 97 Oxygen Delivery Method Room Air Intake Visit Reasons: Botox Intake Note: Botox 200 Corporate Relations Manager Required: No Accompanied by: Self / Same As Patient Allergies No Known Allergies Allergy (Verified 03/14/25 14:55) Medication List - Last Reconciled 03/14/25 by Kya Trevizo MD drospirenone-ethinyl estradiol 3-0.02 mg (Loryna (28)) 1 tab PO DAILY fremanezumab-vfrm (Ajovy) 225 mg (1.5 mL) subcut ONCE 30 days lamotrigine (Lamictal) 25 mg PO BID magnesium oxide 400 mg PO BEDTIME 90 days methylphenidate HCl ER (Concerta) 27 mg PO DAILY onabotulinumtoxinA (Botox) 200 units IM ONCE 12 weeks sumatriptan succinate (Imitrex) take 1 tab at onset of headache; if no relief, may repeat 1 tab after at least 2 hrs; max = 2 tabs/24 hrs PO 30 days HPI Comments Details: ? 44y/o female comes for treatment of migraines with botox. ? How many migraine days prior to botox How long do the migraines last Intensity of migraine ER visits related to migraine Effectiveness of botox from last?two?treatment(s) How many migraine days since receiving treatment: Change? in intensity of migraine? Change in frequency of migraine? Change in use of acute medication for migraine? Change in quality of life? ER visits related to migraine? Explanation for any gaps in treatment Have at least three months elapsed since last treatment (Last botox date - frequency of injections)? Most frequent reported adverse reactions following injection of botox for chronic migraine include neck pain (9%), headache(5%), eyelid ptosis(4%), migraine(4%), muscular weakness(4%), musculuskeletal stiffness(4%), bronchitis(3%), injection site pain (3%), musculoskeletal pain(3%), myalgia(3%), facial paresis(2%), HTN(2%) and muscle spasms(2%) were discussed in detail. ??? Botulinum toxin typeA 200units Lot no [id number] expiration Apr 2027 was diluted with 4 cc of normal saline . ??? Muscles injected- ??? Frontalis 4 sites ??? Procerus 1 site ??? Talent Coordinator- 2 sites ??? Temporalis- 8 sites ??? Occipitalis- 6 sites ??? Cervical paraspinals- 4 sites ??? Trapezius- 6 sites- 10 units each ??? 5 units each in 31 site ??? Total use- 185units ??? [facility] Surgical History H/O foot surgery H/O gastric sleeve Hx laparoscopic cholecystectomy Family History Mother SVT (supraventricular tachycardia) Social History Alcohol intake: current Alcohol intake frequency: holidays/special occasions only Patient Tobacco Use Status: Former Tobacco user Substance Use Type: Marijuana Physical Exam Vital Signs: Last Vital Signs Pulse 126 H 03/14/25 14:55 BP 118/82 03/14/25 14:55 Pulse Ox 97 03/14/25 14:55 Oxygen Delivery Method Room Air 03/14/25 14:55 BMI result Body Mass Index 34.3 Const General: cooperative and no acute distress Orientation/consciousness: patient oriented x3 HEENT Other: mild hoarseness Resp Effort & Inspection: normal respiratory effort and able to speak in complete sentences Neuro Other: Photophobia Left head tilt with mild forward head posture and bilateral elevated shoulder posture, able to self-correct Bilateral posterior cervical tightness and tenderness Slightly limited cervical range of motion, with nonradiating discomfort Negative bilateral Spurling Muscle strength 5/5 throughout General: patient oriented x3 Cognition (Neuro): normal cognition Psych Appearance: grossly normal Mental Status: mental status grossly normal Speech and movement: Normal speech and movement present Affect: normal affect Attitude: cooperative Office Procedures Botulinum toxin Injection 27635 - Migraine Procedure code (CPT) selection complete Office Meds onabotulinumtoxinA 200 unit solution for injection Performing Provider: Kya Trevizo MD Performing Location: [facility] Administered by: Kya Trevizo MD on 03/14/25 15:21 Dose Route Admin Location Dispensed Lot Number Expiration Date [place] Dental Office Receptionist 185 unit subcut 200 units [id number] [place] /BOTOX Total Dispensed Waste 200 units 7.5 % Comments: see hpi Assessment & Plan Assessment & Plan (1) Chronic migraine without aura without status migrainosus, not intractable: Code(s): G43.709 - Chronic migraine without aura, not intractable, without status migrainosus Category: Medical Plan Patient tolerated the procedure well she willc all with any side effects Orders: Orders AMB Botulinum toxin Injection Today G43.709 - Chronic migraine without aura, not intractable, without status migrainosus Coding Level of Care Code Est Pt Level 1 (16738) Diagnoses Chronic migraine without aura without status migrainosus, not intractable G43.709 CPT Codes Botox Injection - Botox 3: 84207 - Migraine ([id number])
[2025-03-14 14:55] VITALS: BP 118/82; PULSE 126; O2SAT 97; BMI 34.3
--- OUTSIDE RECORDS SUMMARY | 2025-03-14 18:10 | XMS_ITS | Encounter Summary ---
Author Organization [facility] Address [address] [place] [phone] Phone Care Team Providers Care Pool Cleaner Name Role Phone Unknown, Unknown Primary Care Provider Afsaneh hernandez Encounter Details Date Type Department Care Team (Late st Contact Info) Description 08/16/2019 Ancillary Orders Virtual Department [address] [place] [address] Aniceto Garcia MD [address] [place] [phone] Right calf pain Social History Tobacco Use [...] pain documented in this encounter Care Teams Pool Cleaner Relationship Specialty Start Date End Date Unknown, Unknown, PCP - General 08/16/19 documented as of this encounter Additional Source Comments The information contained in this document represents components of the legal health record. It is not the complete legal health record.[facility]
--- OUTSIDE RECORDS SUMMARY | 2025-03-14 18:11 | XMS_ITS | Clinical Summary ---
Author Organization [facility] Address [address] [address] Phone Care Team Providers Care Plant And Machinery Valuer Name Role Phone Unknown, Unknown Primary Care [...] YEARS) 2000 PAP SMEAR 10/22/2003 MAMMOGRAM 2022 INFLUENZA VACCINE (#1) 2025 COVID-19 VACCINE (2024-2 6 season) 2025 09/19/2020 Adult Td,Tdap Booster 11/28/2031 11/27/2021 HEPATITIS [...] topic Medical Devices Not on file [place] [id number] [place] [id number] Care Teams Plant And Machinery Valuer Relationship Specialty Start Date End Date Unknown, Unknown, PCP - General 08/16/19 Additional Source Comments The information contained in this document represents components of the legal health record. It is not the complete legal health record.[facility]
== END 2025-03-14 15:19 | disposition home or self-care (01) ==
LOC: HO.HSMS 14:52
PROVIDERS: PCP Physician Assistant; Visit Provider Psychiatry & Neurology Neurology
DX: G43.709 Chronic migraine without aura, not intractable, without status migrainosus (principal)
CPT/HCPCS: 64615

== ENCOUNTER → 2025-03-14 14:52 | Outpatient (BNVA) | payer OTHER, SELFPAY | PROVIDERS: PCP Physician Assistant; Visit Provider Psychiatry & Neurology Neurology | DX: G43.709 Chronic migraine without aura, not intractable, without status migrainosus (principal) | CPT/HCPCS: 64615; 99211; J0585 ==

== ENCOUNTER 2025-03-24 11:46 | Outpatient (AMB) | payer OTHER, SELFPAY ==
[2025-03-24 11:51] VITALS: BP 118/66; PULSE 117; TEMP 37; O2SAT 98; BMI 34.3
--- NOTE | 2025-03-24 11:51 | AM.OFFWIN_ITS ---
Intake Vital Signs 03/24/25 11:51 03/24/25 13:21 Height 5 ft 4 in Weight 200 lb BMI 34.3 BP 118/66 Blood Pressure Location Lt brachial Position Sitting Pulse 117 H 98 Pulse Source Pulse Oximeter Temp 98.6 F Temp Source Oral Pulse Oximetry (%) 98 Intake Visit Reasons: EP-headaches, dizziness Intake Note: Patient presents with headache & dizziness x1 week- Patient received first Botox inj from neurologist 10 days ago. Patient Tobacco Use Status: Former Tobacco user Allergies No Known Allergies Allergy (Verified 03/24/25 11:55) Medication List - Last Reconciled 03/24/25 by Yanna Issa MD drospirenone-ethinyl estradiol 3-0.02 mg (Loryna (28)) 1 tab PO DAILY fremanezumab-vfrm (Ajovy) 225 mg (1.5 mL) subcut ONCE 30 days lamotrigine (Lamictal) 25 mg PO BID magnesium oxide 400 mg PO BEDTIME 90 days methylphenidate HCl ER (Concerta) 27 mg PO DAILY onabotulinumtoxinA (Botox) 200 units IM ONCE 12 weeks sumatriptan succinate (Imitrex) take 1 tab at onset of headache; if no relief, may repeat 1 tab after at least 2 hrs; max = 2 tabs/24 hrs PO 30 days Do you need a note to return to daycare/school/sports/work: No HPI HPI Comments History of Present Illness Details The patient is a 44-year-old female presenting with headaches and dizziness fo llowing Botox treatment for migraines on 03/14/25. - Patient has a hx of migraine headaches - Persistent severe headaches unrelieved by Botox treatment by neurologist with increased stabbing sensation, primarily behind the eyes. Currently 12/15. - Also has had right sided neck discomfo rt for > 1 week. - Took sumatriptan and ibuprofen this mo rning which allowed her to go to sleep but then upon awakening and walking, has worsening headache again - Unsure if symptoms were due to a sinus infection, however no significant rhinorrhea. - Reports associated dizziness and light headedness. States she has a history of tinnitis and reports occasional sharp pain in the right ear. Denies any changes in hearing. - Denies any changes in vision. - Also has associated nausea and vomitin g. Reports 2 episodes of vomiting in the past two days. Denies any blood in emesis. Patient also reports eating spicy food prior to episodes of vomiting and unsure if that was related to episodes of vomiting. She has a hx of hiatal hernia. - Patient also has noticed elevated hear t rate, especially with standing and feels her face becoming warm and red. She has spoken to her doctor about this and was recommended to monitor her heart rate and follow up with a assistant media planner for further evaluation of POTS. PFSH Surgical History H/O foot surgery H/O gastric sleeve Hx laparoscopic cholecystectomy Family History Mother SVT (supraventricular tachycardia) Social History Alcohol intake: current Alcohol intake frequency: holidays/special occasions only Patient Tobacco Use Status: Former Tobacco user Substance Use Type: Marijuana Review of Systems Const Denies chills, Denies fever(s) and Reports headache(s) Eyes Denies blurry vision, Denies change in vision and Denies diplopia ENT Reports vertigo, Reports dizziness, Reports headache(s), Denies nasal discharge and Reports neck pain Card Reports rapid heart rate GI Reports nausea and Reports vomiting Musc Denies abnormal gait and Reports neck pain Neuro Denies abnormal gait, Reports vertigo, Reports dizziness and Reports headache(s) Physical Exam Vital Signs: Last Vital Signs Temp 98.6 F 03/24/25 11:51 Pulse 117 H 03/24/25 11:51 BP 118/66 03/24/25 11:51 Pulse Ox 98 03/24/25 11:51 BMI result Body Mass Index 34.3 Const General: healthy appearing, no acute distress and well developed Orientation/consciousness: patient oriented x3 HEENT Other: Impacted right cerumen noted Head: Yes normocephalic and Yes atraumatic Eyes Other: No nystagmus noted. Pupils: Equal, round and reactive pupils present EOM: EOMs intact bilaterally Direct Ophthalmoscopy: normal light reflex Neck Other: Right cervical paraspinal TTP. Limited ROM of the neck 2/2 pain. Resp Effort & Inspection: normal respiratory effort and able to speak in complete sentences Neuro Other: Sensation intact along all distal extremities General: patient oriented x3 and gait normal Cranial nerves: Yes Equal, round and reactive pupils present and Yes Nystagmus not present Cognition (Neuro): normal cognition Gait exam (Neuro): Normal gait present Motor exam (neuro): 5/5 motor strength present throughout Office Procedures Cerumen Removal From which ear canal was the cerumen removed: right Removal: irrigation Notes: patient tolerated procedure well, no complications and ear canal clear [id number] Irrigation/Lavage Assessment & Plan Assessment & Plan (1) Chronic migraine without aura without status migrainosus, not intractable: Code(s): G43.709 - Chronic migraine without aura, not intractable, without status migrainosus Plan: Patient with a known history of migraines reports worsening headaches and dizziness over the last 2 weeks. She recently received a Botox injection roughly 10 days ago. Sumatriptan and ibuprofen has only been minimally helpful. Currently, patient reports a headache of 7/10. She also has associated right- sided neck pain. Per prior neurology notes, appears this has been unchanged since she was last evaluated prior to receiving Botox injection. Denies any fevers or chills. She reports history of nausea and vomiting with last episode of emesis yesterday, however unsure if this may also be due to diet. Lower concern for infectious etiology such as meningitis. She has no neurological deficits on physical exam. Symptoms may be secondary to chronic migraines versus adverse effect from medication. Advised to continue Imitrex and NSAIDs/Tylenol as needed for pain relief. Would prefer tylenol over NSAIDS due to prior hx of gastric sleeve. Discussed follow-up with neurologist for further evaluation. Patient states that she already reached out to her neurologist and is awaiting a response. Discussed prompt medical evaluation if she develops a thunderclap/severe headache, neurological changes, visual changes or fevers. (2) Headache, unspecified: Code(s): R51.9 - Headache, unspecified Plan: As above (3) Tachycardia: Code(s): R00.0 - Tachycardia, unspecified Plan: Patient noted to have elevated heart rate in office today. Patient has a concern for POTS. Due to prior history of elevated heart rates, patient was previously recommended to monitor HR and follow up with Cardiology was was rosibel terated during visit today. Orders: Orders AMB Cerumen Removal Today H61.21 - Impacted cerumen, right ear Coding Level of Care Code New Pt Level 3 (27011) Diagnoses Chronic migraine without aura without status migrainosus, not intractable G43.709 Headache, unspecified R51.9 Tachycardia R00.0 CPT Codes Office Procedure - CPT: 85532-Upe Irrigation/Lavage ([id number])
[2025-03-24 13:21] VITALS: PULSE 98
--- OUTSIDE RECORDS SUMMARY | 2025-03-24 14:35 | XMS_ITS | Encounter Summary ---
Author Organization [facility] Address [address] [facility] [address] [place] [phone] Phone Care Team Providers Care Wire Mill Operator Name Role Phone Unknown, Unknown Primary Care Provider Afsaneh hernandez Encounter Details Date Type Department Care Team (Late st Contact Info) Description 08/16/2019 Ancillary Orders Virtual Department [address] [place] [address] Aniceto Garcia MD [address] [place] [phone] Right calf pain Social History Tobacco Use [...] pain documented in this encounter Care Teams Wire Mill Operator Relationship Specialty Start Date End Date Unknown, Unknown, PCP - General 08/16/19 documented as of this encounter Additional Source Comments The information contained in this document represents components of the legal health record. It is not the complete legal health record.[facility]
--- OUTSIDE RECORDS SUMMARY | 2025-03-24 14:35 | XMS_ITS | Clinical Summary ---
Author Organization [facility] Address [address] [address] Phone Care Team Providers Care Customer Contact Specialist Name Role Phone Unknown, Unknown Primary Care [...] Medical Devices Not on file [place] [id number] [place] [id number] Care Teams Customer Contact Specialist Relationship Specialty Start Date End Date Unknown, Unknown, PCP - General 08/16/19 Additional Source Comments The information contained in this document represents components of the legal health record. It is not the complete legal health record.[facility]
== END 2025-03-24 13:27 | disposition home or self-care (01) ==
PROVIDERS: PCP Physician Assistant; Visit Provider Family Medicine
DX: G43.709 Chronic migraine without aura, not intractable, without status migrainosus (principal); R51.9 Headache, unspecified; R00.0 Tachycardia, unspecified; H61.21 Impacted cerumen, right ear
CPT/HCPCS: 99213

== ENCOUNTER → 2025-03-24 11:46 | Outpatient (BNVA) | payer OTHER, SELFPAY | PROVIDERS: PCP Physician Assistant; Visit Provider Family Medicine | DX: H61.21 Impacted cerumen, right ear (principal); R42 Dizziness and giddiness; G43.709 Chronic migraine without aura, not intractable, without status migrainosus; R00.0 Tachycardia, unspecified | CPT/HCPCS: 69209 ==

== ENCOUNTER 2025-04-18 09:20 | Outpatient (AMB) | payer OTHER, SELFPAY ==
[2025-04-18 09:26] VITALS: BP 104/72; PULSE 104; BMI 35.4
--- NOTE | 2025-04-18 09:26 | A.OFFVIS_ITS ---
Vital Signs 04/18/25 09:26 Height 5 ft 4 in Weight 206 lb 5.643 oz BMI 35.4 BP 104/72 Blood Pressure Location Lt brachial Position Sitting Pulse 104 H Pulse Source Monitor Intake Visit Reasons: 2023 patient/Tachy/CP Sample Maker Required: No Allergies No Known Allergies Allergy (Verified 04/18/25 09:29) Medication List - Last Reconciled 04/18/25 by Theresa Gold NP-C drospirenone-ethinyl estradiol 3-0.02 mg (Loryna (28)) 1 tab PO DAILY magnesium oxide 400 mg PO BEDTIME 90 days methylphenidate HCl ER (Concerta) 27 mg PO DAILY onabotulinumtoxinA (Botox) 200 units IM ONCE 12 weeks sumatriptan succinate (Imitrex) take 1 tab at onset of headache; if no relief, may repeat 1 tab after at least 2 hrs; max = 2 tabs/24 hrs PO 30 days HPI HPI 2023 patient/Tachy/CP: Details: Dayan is a 44-year-old female who was previously evaluated for heart palpitations without significant cardiac findings. Last prior visit was 09/10/2023. She presents with recurrent symptoms. Today she reports having issues with migraine headaches for the last month. It is occurring most days. She is following with Neurology for this problem. She has been experiencing some heart palpitations especially when in an upright position and lightheadedness with position changes and bending. No presyncope, syncope, falls. She does state at times she will have a sudden rise in her heart rate for no reason. She uses an O2 sat monitor and has recorded her heart rate as high as 150. She has fatigue and is now wondering if she has POTS. She is maintaining good hydration, she states up to 80 oz of water per day. She says her neurologist told her to increase salt intake. Blood pressure does run low normal. 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 Had been exercising routinely but had to stopped due to her migraines. [facility] Surgical History H/O foot surgery H/O gastric sleeve Hx laparoscopic cholecystectomy Family History Mother SVT (supraventricular tachycardia) Social History Alcohol intake: current Alcohol intake frequency: holidays/special occasions only Patient Tobacco Use Status: Former Tobacco user Substance Use Type: Marijuana Review of Systems Const All systems reviewed & are unremarkable except as noted in HPI and below Reports headache(s) and Reports malaise ENT Reports dizziness (With position changes) and Reports headache(s) Card Denies chest pain, Denies chest pain at rest, Denies chest pain with activity, Reports rapid heart rate, Denies pedal edema, Denies edema, Denies leg edema, Denies lightheadedness, Denies palpitations, Reports dyspnea, Denies dyspnea on exertion and Denies orthopnea Resp Denies cough, Reports dyspnea and Denies dyspnea on exertion GI Denies hematochezia and Denies change in stool character Musc Denies abnormal gait, Denies limited range of motion, Denies muscle cramps, Denies muscle weakness, Denies numbness, Denies radiating pain into limb, Denies stiffness and Denies tingling Neuro Denies abnormal gait, Reports dizziness (With position changes), Reports headache(s), Denies numbness and Denies tingling Endo Denies palpitations Physical Exam Vital Signs: Last Vital Signs Pulse 104 H 04/18/25 09:26 BP 104/72 04/18/25 09:26 BMI result Body Mass Index 35.4 Const General: cooperative, healthy appearing, comfortable and no acute distress Orientation/consciousness: patient oriented x3 Resp Effort & Inspection: normal respiratory effort Auscultation: clear to auscultation bilaterally, no rales, no rhonchi and no wheezes Cardio Jugular venous distension: no JVD Rate: regular rate Rhythm: regular rhythm Heart sounds: S1 normal heart sound present, S2 normal heart sound present, no murmurs and no rubs Neuro General: patient oriented x3 Extrem General: Yes normal to inspection Psych Appearance: grossly normal Mental Status: mental status grossly normal Speech and movement: Normal speech and movement present Office Procedures EKG Details: Today, read by me, sinus tachycardia, cant exclude prior anterior infarct ( likely related to body habitus), rate 104, Qtc 426ms [id number], Complete Assessment & Plan Assessment & Plan (1) Palpitation: Code(s): R00.2 - Palpitations Category: Medical Plan: Prior cardiac evaluation for heart palpitations without significant findings. There was a question as to whether she had NSVT though it was not confirmed. Last Echocardiogram showed essentially normal study. Holter monitor done 08/25/2023 for 3 days shows sinus rhythm with average heart rate 89, no signific ant arrhythmia or pauses. She is now reporting rapid heart rates with an upright position and randomly and suddenly. Associated symptoms of lightheadedness. She is questioning if she has POTS. Will check a 3 day Holter monitor to assess for arrhythmia and heart rate trends. Suggested she get a [employer] mobile device to assess heart rhythm when she has sudden rapid rates. Reviewed reduction in caffeinated beverages. Maintain good hydration and add salt to her diet. Discussed use of Gatorade/ Powerade. Tilt-table ordered. Exercise as tolerated. Cardiology follow-up 3 months, sooner if needed. (2) Tachycardia: Code(s): R00.0 - Tachycardia, unspecified Category: Medical Plan: EKG today showing sinus tachycardia, rate 104. Testing as above. (3) Abnormal EKG: Code(s): R94.31 - Abnormal electrocardiogram [ECG] [EKG] Category: Medical Plan: Her EKGs do state can not exclude anterior infarct. Echo from 08/25/2023 was normal. Exercise stress echo 09/03/2023 was negative for ischemia or diastolic dysfunction with exercise. No evidence that she did have prior LA in the past. This finding is likely related to lead placement/body habitus. (4) Lightheadedness: Code(s): R42 - Dizziness and giddiness Category: Medical Plan: As above (5) Sinus tachycardia: Code(s): R00.0 - Tachycardia, unspecified Category: Medical Plan: As above Plan We discussed the possibility of SVT and / or Postural Orthostatic Tachycardia Syndrome (POTS) and the importance of hydration and salt intake to manage symptoms. I recommended a tilt table test and Holter monitor to evaluate the tachycardia further. We also talked about using [employer] for monitoring heart rate and rhythm at home. Orders: Orders ECG 3 day holter monitor Today R00.0 - Tachycardia, unspecified, R00.2 - Palpitations, R42 - Dizziness and giddiness ECG Tilt Table Test Today R00.0 - Tachycardia, unspecified, R00.2 - Palpitations, R42 - Dizziness and giddiness Patient Instructions: - Increase fluid intake to at least 64 ounces daily. - Add more salt to your diet as advised by your neurologist. - Use [employer] to monitor your heart rate and rhythm. - Follow up with a tilt table test and Holter monitor as scheduled. Patient was informed and verbally consented to the use of an ambient scribe for clinic note documentation during this visit. Visit time spent on chart review, interview, assessment, orders, documentation. Coding Level of Care Code Est Pt Level 4 (04794) Complex EM visit Add On G2211 Diagnoses Palpitation R00.2 Tachycardia R00.0 Abnormal EKG R94.31 Lightheadedness R42 Sinus tachycardia R00.0 CPT Codes EKG - CPT: 84557-[id number], Complete ([id number]) Time Spent (min) 30
--- OUTSIDE RECORDS SUMMARY | 2025-04-18 10:12 | XMS_ITS | Encounter Summary ---
Author Organization [facility] Address [address] [facility] [address] [place] [phone] Phone Care Team Providers Care Hearing Aid Repairer Name Role Phone Unknown, Unknown Primary Care Provider Afsaneh hernandez Encounter Details Date Type Department Care Team (Late st Contact Info) Description 08/16/2019 Ancillary Orders Virtual Department [address] [place] [address] Aniceto Garcia MD [address] [place] [id number] Right calf pain Social History Tobacco Use [...] pain documented in this encounter Care Teams Hearing Aid Repairer Relationship Specialty Start Date End Date Unknown, Unknown, PCP - General 08/16/19 documented as of this encounter Additional Source Comments The information contained in this document represents components of the legal health record. It is not the complete legal health record.[facility]
--- OUTSIDE RECORDS SUMMARY | 2025-04-18 10:12 | XMS_ITS | Clinical Summary ---
Author Organization [facility] Address [address] [address] Phone Care Team Providers Care Electrical Technician Instructor Name Role Phone Unknown, Unknown Primary Care [...] topic Medical Devices Not on file [facility] [place] [id number] [place] [id number] Care Teams Electrical Technician Instructor Relationship Specialty Start Date End Date Unknown, Unknown, PCP - General 08/16/19 Additional Source Comments The information contained in this document represents components of the legal health record. It is not the complete legal health record.[facility]
== END 2025-04-18 10:01 | disposition home or self-care (01) ==
LOC: HO.HCS 09:21
PROVIDERS: PCP Physician Assistant; Visit Provider Nurse Practitioner Family
DX: R00.2 Palpitations (principal); R00.0 Tachycardia, unspecified; R94.31 Abnormal electrocardiogram [ECG] [EKG]; R42 Dizziness and giddiness
CPT/HCPCS: 93010; 99214; G2211

== ENCOUNTER → 2025-04-18 09:20 | Outpatient (BNVA) | payer OTHER, SELFPAY | PROVIDERS: PCP Physician Assistant; Visit Provider Nurse Practitioner Family | DX: R00.2 Palpitations (principal) | CPT/HCPCS: 93005 ==

== ENCOUNTER 2025-05-26 12:00 | Outpatient (AMB) | payer OTHER, SELFPAY ==
--- OUTSIDE RECORDS SUMMARY | 2025-05-22 23:59 | XMS_ITS | Continuity of Care Document ---
Author Organization [facility] Address [address] [place] [phone]- Care Team Providers Care Ticket Dispenser Changer Name Role Phone Roseline AVERY, Willow Hemphill Primary Care Physic judi Encounter [facility] Date(s): 04/22/25 - 05/22/25 [facility] Adult [address] [place] [address]- Encounter Type: Triage Allergies, Adverse Reactions, Alerts No Known Allergies Immunizations Given and Recorded Vaccine Date Status Refusal Reason influenza virus vaccine, inactivated 04/19/25 Give n influenza virus vaccine, inactivated 02/23/19 Give n tetanus/diphtheria/pertussis, acel(Tdap) 11/27/21 Recorded Medications Carole 0.35 mg oral tablet 1 tablet = 0.35 mg, By Mouth, Daily, start first tablet today, # 90 tablet, 3 Refills, Maintenance,04/19/25 11:13:00 AM EST, Tablet, [id number], Partial fill upon patient request if the prescription is for a schedule II opioid drug., 162, cm, 04/19/25 10:23:00 EST, Height, 88.6, kg, 02/01/24 10:29:00 EDT, Dry Weight Start Date: 04/19/25 Status: Ordered Medication Dispense Status: Completed Quantity: 90.0 Unit: tablet Total Allowed Fills: 4 Fills Dispensed: 0 Indications: Polycystic ovarian syndrome; LaMICtal 100 mg oral tablet 100 mg, 1, tablet, By Mouth, Daily, # 90 tablet, Refills 0, Tot. Refills 0, Maintenance, 04/19/25 11:23:00 AM EST, Route to Pharmacy Electronically, [id number], Partial fill upon patient request if the prescription is for a schedule II opioid drug., 162, cm, 04/19/25 10:23:00 EST, Height, 88.6, kg, 02/01/24 10:29:00 EDT, Dry Weight Start Date: 04/19/25 Stop Date: 07/18/25 Status: Ordered Medication Dispense Status: Completed Quantity: 90.0 Unit: tablet Total Allowed Fills: 1 Fills Dispensed: 0 Indications: Bipolar disorder, unspecified; LaMICtal 25 mg oral tablet 25 mg, 1, tablet, By Mouth, 2 times a day, Week 1+2 take 1 pill daily Week 3 +4 take 2 pills daily,# 42 each, Refills 0, Tot. Refills 0, Maintenance, 04/19/25 11:20:00 AM EST, Route to Pharmacy Electronically, [facility]pharm[facility] #[id number], Partial fill upon patient request if the prescription is for a schedule II opioid drug., 162, cm, 04/19/25 10:23:00 EST, Height, 88.6, kg, 02/01/24 10:29:00 EDT, Dry Chiki ght Start Date: 04/19/25 Stop Date: 05/19/25 Status: Ordered Medication Dispense Status: Completed Quantity: 42.0 Unit: each Total Allowed Fills: 1 Fills Dispensed: 0 Indications: Polycystic ovarian syndrome; magnesium oxide 400 mg oral capsule 1 capsule = 400 mg, By Mouth, Daily, 0 Refills, Maintenance, 04/19/25 10:21:00 AM EST, Partial fillupon patient request if the prescription is for a schedule II opioid drug. Start Date: 04/19/25 Status: Ordered Medication Dispense Status: Completed Total Allowed Fills: 1 Fills Dispensed: 0 methylphenidate 36 mg oral tablet, extended release 1 tablet = 36 mg, By Mouth, Daily in AM, # 30 tablet, 0 Refills, Maintenance, 05/16/25 2:01:00 PM EST, ER Tablet, [id number], Pt is paying out of pocket, does not have insurance, 162, cm, 04/19/25 10:23:00 EST, Height, 88.6, kg, 02/01/24 10:29:00 EDT, Dry Weight Start Date: 05/16/25 Status: Ordered Medication Dispense Status: Completed Quantity: 30.0 Unit: tablet Total Allowed Fills: 1 Fills Dispensed: 0 SUMAtriptan 100 mg oral tablet 1 tablet, By Mouth, Daily, PRN NEEDED FOR MIGRAINE HEADACHE, MAY REPEAT DOSE AFTER 2HR UP TO A MAX OF 2, # 9 tablet, 1 Refills, Maintenance, 07/01/24 9:52:00 AM EST, [id number], 162, cm, 02/01/24 10:29:00 EDT, Height, 88.6, kg, 02/01/24 10:29:00 EDT, Dry Weight Start Date: 07/01/24 Status: Ordered Medication Dispense Status: Completed Quantity: 9.0 Unit: tablet Total Allowed Fills: 2 Fills Dispensed: 0 Problem List Condition Confirmation Course Effective Dates Status H ealth Status Informant ADHD, dx in childhood, concerta stable dose Confirmed Active Bipolar disorder with MDD, 1999s, lamictal, f/b therapist Confirmed Active Obesity (BMI 30-39.9) Confirmed Active Fatigue Confirmed Active GERD (gastroesophageal reflux disease) Confirmed Active Generalized anxiety disorder with panic attacks, f/b therapist, responsive to neurofeedback Confirmed Active History of PCOS 2/2 weight, on OCP Confirmed Active History of skull fracture, Age 11, f/b neurology Confirmed Active History of Gastric Sleeve, 2014 Confirmed Active IFG (impaired fasting glucose) Confirmed Active Migraine, fb neurology PATIENT CARE REPRESENTATIVE [facility] Confirmed Active Annual physical exam Confirmed Active Annual wellness visit Confirmed Active Social History Social History Type Response Sexual Sexually involved in last 6 months: Yes. Gender identity: Identifies as female. Gender of partner(s): Male. Smoking Status Use: 4 or less cigar ettes(less than 1/4 pack)/day in last 30 days;Former smoker, quit more than 30 days ago; Other: Smokes one cigarette every few months; entered on: 04/19/25 Sex Sex Representation Female (finding) Patient Care team information Care Team Personnel Name: Roseline AVERY, Willow Hemphill Position: S Physician - Primary Care Member Role: PCP Address: [address] [place] [address]- Telecom: Care Team Related Persons Name: KELLY BORRERO Insurance Providers Guarantor name: [facility] Plan Information #: 1 Payer: [facility] Payer Identifier: ODALYS Member Number: [id number] Group Number: [id number] Subscriber Identifier: ODALYS Relationship to Subscriber: self Coverage Type: NA Coverage Verification Date: NA Telecom: NA Address: NA
--- OUTSIDE RECORDS SUMMARY | 2025-05-22 23:59 | XMS_ITS | Continuity of Care Document ---
Author Organization [facility] Pio lt Address [address] [place] [address]- Care Team Providers Care Managed Care Specialist Name Role Phone Roseline AVERY, Willow Hemphill Primary Care Physic judi Encounter [facility] Date(s): 04/22/25 - 05/22/25 [facility] Adult [address] [place] [address]- Encounter Type: Triage Allergies, Adverse Reactions, Alerts [...] Refills, Maintenance,04/19/25 11:13:00 AM EST, Tablet, [id number], Partial fill upon patient request if the [...] 11:23:00 AM EST, Route to Pharmacy Electronically, [facility]pharm[facility] #[id number], Partial fill upon patient request if [...] 11:20:00 AM EST, Route to Pharmacy Electronically, [facility]/pharmacy #[id number], Partial fill upon patient request if [...] fasting glucose) Confirmed Active Migraine, fb neurology DIVIDEND DEPOSIT 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
--- OUTSIDE RECORDS SUMMARY | 2025-05-22 23:59 | XMS_ITS | Continuity of Care Document ---
Author Organization [facility] P[facility] Address [address] [place] [address]- Care Team Providers Care Skid Man Name Role Phone Roseline AVERY, Willow Hemphill Primary Care Physic judi [facility] 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
--- NOTE | 2025-05-26 12:02 | A.OFFVIS_ITS ---
Vital Signs 05/26/25 12:11 Height 5 ft 4 in Weight 203 lb BMI 34.8 BP 110/80 Blood Pressure Location Rt brachial Position Sitting Pulse 87 Pulse Source Pulse Oximeter Pulse Oximetry (%) 98 Oxygen Delivery Method Room Air Intake Visit Reasons: Questions about symptoms Intake Note: Patient presents follow up for migraines Institutional Research Coordinator Required: No Accompanied by: Self / Same As Patient Allergies No Known Allergies Allergy (Verified 05/26/25 12:11) Medication List - Last Reconciled 05/26/25 by MARY Grover drospirenone-ethinyl estradiol 3-0.02 mg (Loryna (28)) 1 tab PO DAILY magnesium oxide 400 mg PO BEDTIME 90 days methylphenidate HCl ER (Concerta) 36 mg PO DAILY onabotulinumtoxinA (Botox) 200 units IM ONCE 12 weeks sumatriptan succinate (Imitrex) take 1 tab at onset of headache; if no relief, may repeat 1 tab after at least 2 hrs; max = 2 tabs/24 hrs PO 30 days HPI Comments Details: 44-yr-old female presents for follow-up of migraine, blurry vision, tinnitus She states she has not done restarted PT. She has not had eye appointment yet- could not have the appointment due to an insurance issue. She has seen cardiology for her POTs s/s, and they recommended she undergo 72 hour Holter monitor and a tilt-table test. She had ENT consult, including audiology evaluation, which did reveal hearing loss, which likely contributes to her pulsatile tinnitus symptoms. She is working on strategies for staying organized at work. She states that since starting Botox, she has had decrease in the severity of her migraine attacks, however she continues to have a daily headache. She states she has been better at taking her sumatriptan at the onset of her migraine. However she is taking just a bite of sumatriptan every day. Again since starting Botox therapy for chronic migraine, she has not needed to miss work recently. She has started to do the PT exercises given to her the last time she did PT. She is also doing home massage- especially where her neck pain is a/w migraine. She is trying to eat better- now doing intermittent fasting- which seems to help better. * Since starting the intermittent fasting, she does not have the generalized body heat/warmth sensation after eating, which is often f/b migraine. 01/30/2025, HPI: Patient reports that while taking Ajovy, she was having approximately. 3 migraine days per month, which were usually responsive to her as-needed sumatriptan 50-100mg. She notes that before starting Ajovy, she was having 15- 16 migraine days per month. Unfortunately, her insurance recently changed, and her new insurance denied the request for Ajovy, which resulted in a lapse in her Ajovy therapy. And thus, unfortunately, she is again having 15-16 typical migraine days per month. She states that Ubrelvy was not more effective than sumatriptan. She is also having increased neck tightness and discomfort. Noticing insoles cervical cracking. Notes that she and her family are prone to a left head tilt. She denies diplopia. She reports that PT in the past was helpful, except when they were a bit too aggressive with the myofascial release therapy. She does note intermittent blurry vision, such as when reading or looking at her still. She had a recent optometry eval, but has not had a comprehensive eye exam. She uses contacts for distant vision. She has not yet used corrective lenses for near/reading vision. She never started Acetazolamide, as her insurance lapsed and she did not have the previously requested eye exam. She is not sleeping as well. She feels fortunate that her work is flexible, and if she has a severe migraine, she can adjust her work schedule accordingly. 03/31/2024, Previous HPI: Pt states she has recovered from the nkzmh-ylbq-uakqr dz infection, but then came down with Covid-19. Pt has not had vision exam yet- she did hear from [facility] but has not called them back yet. She had LP yesterday, per pt it was a traumatic tap. OP was 20mmHg. She had not noticed any postural headache, but as the visit progressed pt started to develop headache a/w nausea. CSF studies were WNL, elevated RBCs likely d/t traumatic tap. 03/30/24 11:46 CSF Tube Number 2 CSF Volume 3.0 CSF Appearance CLEAR CSF Color COLORLESS CSF WBC 2 CSF RBC 17 CSF Neutrophils 1 CSF Lymphocytes 4 CSF Monocytes % 1 CSF Appearance (b) Clear, Colorless CSF Glucose 61 CSF Total Protein 29.8 She feels her vision is still constantly blurry. Her last eye exam was reported as normal. She has pulsatile tinnitus, where it feels like her head is in a speaker or she can hear her pulse. She is also noticing ringing in her ear. This is worse when she has a headache. And is a/w feeling flushed. She feels that she noticed this more when propped up. She has had episodes of waking up with right inner pre-auricular pain. Endorses she may clench her teeth. Request for in-ronaldo sleep study was denied. She states that her sleep has been better recently. HST was inconclusive. Continues to have difficulty maintaining sleep, snoring, fatigue and daytime tiredness. Pt started Ajovy 1.5-2 wks ago- states she accidentally jerked so did not receive full dose, however, she thinks it has been helpful. has not had a migraine (outside of just now) since. She attributes this to the summer and [place] weather changes. She did receive Ubrelvy- helpful. Using Sumatriptan prn. Baseline headache characteristics: Aura: Previously never had visual aura. More recently the lights were flickering x's 3 days- this was f/b developing an eye stye. Headache: Severe, Varies- throbbing, pressure, stabbing. Location varies- left is more temporal. Right is more parietal and occipital. Mid-frontal. Neck. A/w Photophobia, phonophobia, osmophobia, allodynia, nausea, difficulty concentrating, word finding difficulties, tiredness, activity intolerance., Left eyelid droops , left facial stiffness/heavy/altered sensation- feels droopy but her boyfriend does not see it, tariq eye tearing and prolonged yawning. 12/04/23, MR/MR head/brain wo/w con IMPRESSION: Unremarkable contrast enhanced MRI of the brain. 11/17/23, CT/CT angio head neck IMPRESSION: Normal CTA of the head and neck. No focal stenosis or evidence of vessel injury. No intracranial aneurysm or vascular malformation. 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 PFSH Surgical History H/O foot surgery H/O gastric sleeve Hx laparoscopic cholecystectomy Family History Mother SVT (supraventricular tachycardia) Social History Alcohol intake: current Alcohol intake frequency: holidays/special occasions only Patient Tobacco Use Status: Former Tobacco user Substance Use Type: Marijuana Physical Exam Vital Signs: Last Vital Signs Pulse 87 05/26/25 12:11 BP 110/80 05/26/25 12:11 Pulse Ox 98 05/26/25 12:11 Oxygen Delivery Method Room Air 05/26/25 12:11 BMI result Body Mass Index 34.8 Const General: cooperative and no acute distress Orientation/consciousness: patient oriented x3 HEENT Other: mild hoarseness Resp Effort & Inspection: normal respiratory effort and able to speak in complete sentences Neuro Other: Photophobia Muscle strength 5/5 throughout General: patient oriented x3 Cognition (Neuro): normal cognition Psych Appearance: grossly normal Mental Status: mental status grossly normal Speech and movement: Normal speech and movement present Affect: normal affect Attitude: cooperative Telehealth Telehealth Telehealth Platform: [facility] Location of provider rendering services: practice address Location of patient: address on file Patient Identification confirmed using: Name, : Yes Telehealth method: video Patient verbally consented to treatment: Yes Patient verbally consented to billing insurance company: Yes Patient informed of any privacy concerns related to visit: Yes Minutes spent on Phone/Video with Pt.: 27 Assessment & Plan Assessment & Plan (1) Vision changes: Code(s): H53.9 - Unspecified visual disturbance Category: Medical (2) Pulsatile tinnitus, bilateral: Code(s): H93.A3 - Pulsatile tinnitus, bilateral Category: Medical (3) Positional headache: Code(s): R51.0 - Headache with orthostatic component, not elsewhere classified Category: Medical (4) Cervicalgia: Code(s): M54.2 - Cervicalgia Category: Medical (5) Chronic migraine without aura without status migrainosus, not intractable: Code(s): G43.709 - Chronic migraine without aura, not intractable, without status migrainosus Category: Medical (6) Palpitation: Code(s): R00.2 - Palpitations Category: Medical (7) Fatigue: Code(s): R53.83 - Other fatigue Category: Medical (8) Lightheadedness: Code(s): R42 - Dizziness and giddiness Category: Medical (9) Fatigue: Code(s): R53.83 - Other fatigue Category: Medical (10) Flushing: Code(s): R23.2 - Flushing Category: Medical (11) Voice hoarseness: Code(s): R49.0 - Dysphonia Category: Medical Plan For blurry vision, positional headaches, and pulsatile tinnitus: * Check labs * Cardiology workup as ordered * Tilt-table test at [facility] * 72 hour tilt-table test * Previous workup: * 12/04/2023 brain MRI and head/neck CTA- results notable for 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 * 11/17/2023 LP- OP 20 cmH2O- high end of normal. CSF studies- WNL, RBC presence likely d/t traumatic tap. * Call [facility] to make an appointment for visual field testing. * After eye exam, we will reconsider trial of acetazolamide 125mg po tid- check CBC/CMP 1 month after starting. * Future considerations- referral to [facility] neuroendovascular clinic. For overall headache management: Continue to optimize good self-care, including but not limited to maintaining a healthy diet, adequate fluid intake, adequate sleep, and engaging in regular physical activity. * For headache triggers: * Track headaches. * Light sensitivity tips: * Blue light filtering glasses, green glasses, and green light therapy can all help to reduce light sensitivity * Avoid wearing sunglasses inside to reduce the risk of exacerbating light sensitivity. * PT eval and treat for myofascial release, posture, cervicalgia, and migraine headache * Future considerations: Sleep study, cervical injection therapy for left head tilt For acute headache treatment: Take acute medications at the first sign of headache; however s avoid acute medication overuse (especially with combined headache medications). * Continue Sumatriptan 100mg tab, 1/2 - 1 tab (50-100mg) at onset of headache, may repeat in 2 hours. Max of 2 tabs (200mg) per 24 hours. * May take sumatriptan with OTC Tylenol 650-1,000mg every 4-6 hours as needed * Previous acute migraine medication trials: Sumatriptan 50-100mg- helps sometimes, causes sleepiness. Eletriptan- helpful but caused profound sleepiness. Ubrogepant (Ubrelvy) 100mg tab- was not fully effective. * Acute migraine medication contraindications: NSAIDs due to history of gastric sleeve For chronic migraine headache prevention medication: * Continue Riboflavin 400mg qam * Continue Magnesium 400mg qhs * Continue Botox 155 units IM every 12 weeks, as patient has had a significant reduction in intensity of her migraine attacks, as evidenced by no longer needing to miss work. . * However, as she continues to experience daily headaches, she has advised to optimize her overall migraine prevention plan, and as she has previously had a greater than 75% reduction in monthly migraine days with Ajovy use, she is advised to resume a anti CGRP monoclonal antibody. Unfortunately, the Ajovy is not on her health insurance formulary, therefore we will request Emgality instead. * Start Emgality 120mg/ml auto-injection: * Loading dose: 240mg (2 120mg/ml auto-injections) via subcutaneous injection in 2 different sites). * Then 30 days after loading dose, start Maintenance dose: 120mg (120mg/ml autoinjector) subcutaneous injection every month. * Patient requests injection training once Emgality available. Previous migraine prevention medication trials: Topiramate- caused hallucinations, cognitive difficulties, taste changes, Nortriptyline- ineffective, Gabapentin- caused hypotension, Propranolol- ineffective and caused hypotension, Lamotrigine- was used for mood, did help headaches somewhat, Depakote- ineffective. Migraine prevention medication contraindications: None at this time Follow up in 3-6 months or sooner PRN. Orders: Orders C Reactive Protein 05/26/25 R00.2 - Palpitations, R42 - Dizziness and giddiness, R53.83 - Other fatigue Complete Blood Count Auto Diff 05/26/25 R00.2 - Palpitations, R42 - Dizziness and giddiness, R53.83 - Other fatigue Comprehensive Met. Panel 05/26/25 R00.2 - Palpitations, R42 - Dizziness and giddiness, R53.83 - Other fatigue Rheumatoid Factor 05/26/25 R00.2 - Palpitations, R42 - Dizziness and giddiness, R53.83 - Other fatigue TSH reflex Free T4 05/26/25 R00.2 - Palpitations, R42 - Dizziness and giddiness, R53.83 - Other fatigue DEVANTE Reflex Titer and Pattern 05/26/25 R00.2 - Palpitations, R42 - Dizziness and giddiness, R53.83 - Other fatigue Erythrocyte Sedimentation Rate 05/26/25 R00.2 - Palpitations, R42 - Dizziness and giddiness, R53.83 - Other fatigue Referrals Allergy & Immunology Referral R23.2 - Flushing, R49.0 - Dysphonia, R53.83 - Other fatigue Medications: New galcanezumab-gnlm (Emgality Pen) Loading dose: 120 mg subcu injection x2 in alternate sites (total 240 mg). To be followed by maintenance dose of 120 mg subcu q.month. 240 mg (2 mL) subcut ONCE 2 mL 0RF 30 days Coding Level of Care Code Est Pt Level 4 (25163) Diagnoses Vision changes H53.9 Pulsatile tinnitus, bilateral H93.A3 Positional headache R51.0 Cervicalgia M54.2 Chronic migraine without aura without status migrainosus, not intractable G43.709 Palpitation R00.2 Fatigue R53.83 Lightheadedness R42 Flushing R23.2 Voice hoarseness R49.0
[2025-05-26 12:11] VITALS: BP 110/80; PULSE 87; O2SAT 98; BMI 34.8
--- OUTSIDE RECORDS SUMMARY | 2025-05-26 14:06 | XMS_ITS | Encounter Summary ---
Author Organization [facility] Address [address] [facility] [address] [place] [address] Phone Care Team Providers Care Manager Resource Name Role Phone Unknown, Unknown Primary Care Provider Afsaneh hernandez Encounter Details Date Type Department Care Team (Late st Contact Info) Description 08/16/2019 Ancillary Orders Virtual Department [address] [place] [address] Aniceto Garcia MD [address] [place] [id number] Right calf pain Social History Tobacco Use [...] pain documented in this encounter Care Teams Manager Resource Relationship Specialty Start Date End Date Unknown, Unknown, PCP - General 08/16/19 documented as of this encounter Additional Source Comments The information contained in this document represents components of the legal health record. It is not the complete legal health record.[facility]
--- OUTSIDE RECORDS SUMMARY | 2025-05-26 14:06 | XMS_ITS | Clinical Summary ---
Author Organization [facility] Address [address] [address] Phone Care Team Providers Care Down Filler Name Role Phone Unknown, Unknown Primary Care [...] 2022 INFLUENZA VACCINE (#1) 2025 COVID-19 VACCINE ( - 2024-2 6 season) 2025 09/19/2020 Adult Td,Tdap Booster [...] topic Medical Devices Not on file Insurance [place] [id number] [place] [id number] Care Teams Down Filler Relationship Specialty Start Date End Date Unknown, Unknown, PCP - General 08/16/19 Additional Source Comments The information contained in this document represents components of the legal health record. It is not the complete legal health record.[facility]
--- OUTSIDE RECORDS SUMMARY | 2025-05-26 14:06 | XMS_ITS | Clinical Summary ---
Author Organization [facility] Address [address] [place] [address] Phone Care Team Providers Care Transport Coordinator Name Role Phone Unavailable Primary Care Provider Unavailabl e Social History Tobacco Use Types Packs/Day Years Used Date Smoking Tobacco: Never Assessed Comments Unknown Sex and Gender Information Value Date Recorded Sex Assigned at Not on file Legal Sex Female 11:29 AM EST Gender Identity Not on file Sexual Orientation Not on file Plan of Treatment Upcoming Encounters Date Type Department Care Team (Late st Contact Info) Description 07/04/2025 2:30 PM EST Appointment [facility] [address] [place] [address] Health Maintenance Due Date Last Done Comments Breast Cancer Screening 1982 DTaP,Tdap,and Td Vaccines (1 - Tdap) 2001 Hepatitis B Vaccines (1 of 3 - 19+ 3-dose series) 2001 Cervical Cancer Screening: P ap Smear 10/22/2003 HPV Vaccines (1 - 3-dose SCD M series) 2009 Depression Screening 06/08/2024 COVID-19 Vaccine ( - 2024-2 6 season) 2025 Influenza Vaccine (#1) 2025 HIV Screening 04/18/2025 Hepatitis C Screening 04/18/2025 Social Influencers of Health Screening 04/18/2025 RSV Immunization Adult Patie nts (1 - 1-dose 75+ series) 2057 HIB Vaccines Aged Out No longer eligi ble based on patient's age to complete this topic Hepatitis A Vaccines Aged Out No long er eligible based on patient's age to complete this topic IPV Vaccines Aged Out No longer eligi ble based on patient's age to complete this topic MMR Vaccines Aged Out No longer eligi ble based on patient's age to complete this topic Meningococcal ACWY Vaccine Aged Out N o longer eligible based on patient's age to complete this topic Meningococcal B Vaccine Aged Out No l onger eligible based on patient's age to complete this topic Pneumococcal Vaccine: Pediat rics (0 to 5 Years) and At-Risk Patients (6 to 49 Years) Aged Out No longer eligible b ased on patient's age to complete this topic RSV Immunization Patients Un patrick 20 months Aged Out No longer eligible b ased on patient's age to complete this topic Varicella Vaccines Aged Out No longer eligible based on patient's age to complete this topic Insurance [facility]
== END 2025-05-26 13:33 | disposition home or self-care (01) ==
LOC: HO.HSMS 12:01
PROVIDERS: PCP Physician Assistant; Visit Provider Nurse Practitioner Family
DX: H53.9 Unspecified visual disturbance (principal); H93.A3 Pulsatile tinnitus, bilateral; R51.0 Headache with orthostatic component, not elsewhere classified; M54.2 Cervicalgia; G43.709 Chronic migraine without aura, not intractable, without status migrainosus; R00.2 Palpitations; R53.83 Other fatigue; R42 Dizziness and giddiness; R23.2 Flushing; R49.0 Dysphonia
CPT/HCPCS: 99214